=== PATIENT | male | born 1980 | race Caucasian/White ===

== ENCOUNTER 2019-04-30 19:21 | Inpatient (IN) | payer OTHER ==
[2019-04-30] MEDS ORDERED: DEXAMETHASONE LIQUID 0.5 MG/5 ML PO ONE (19:39)
--- NOTE | 2019-04-30 19:39 | PDOC ---
Rapid Medical Evaluation Time Seen by Provider: 04/30/19 19:36 Medical Evaluation: Allergies Allergy/AdvReac Type Severity Reaction Status Date / Time imipenem [Imipenem] Allergy Severe Rash Verified 05/24/14 08:16 Shellfish Allergy Severe Swelling Verified 05/24/14 08:16 vancomycin Allergy Verified 05/24/14 08:16 04/30/19 19:36 HPI: Body pain and SOB x 5 days PE: Decreased breath sounds at the bases ORDERS: Steroids and Duo Nebs CXR Discharge Disposition - Diagnosis SOB (shortness of breath) - Referrals - Patient Instructions - Post Discharge Activity
[2019-04-30 19:42] VITALS: BMI 29.3
[2019-04-30] MEDS ORDERED: ALBUTEROL SO4 2.5/IPRATROPIUM 0.5 INH SOL 3 ML VIAL.NEB. NEB ONE ×3 (22:04→23:03)
[2019-04-30] MEDS ORDERED: DEXAMETHASONE SOD PHOSPHATE 10 MG/1 ML VIAL ONE ×2 (22:07→23:03)
--- NOTE | 2019-04-30 22:26 | PDOC ---
History of Present Illness - General Chief Complaint: Cold Symptoms Stated Complaint: PAIN Time Seen by Provider: 04/30/19 19:36 History Source: Patient - History of Present Illness Initial Comments: 04/30/19 22:25 39 year old undomiciled male c/o cough, bodyaches, subjective fever. nausea and vomiting yesterday.denies drug or alcohol . patient with multiple complaints. reports that patient usually gets care at [facility] PMHX: HIV not on meds off for thge last 6 months, unknown CD4 count, COPD, asthma, substance abuse 04/30/19 22:30 04/30/19 22:39 04/30/19 23:27 Past History - Past Medical History Allergies/Adverse Reactions: Allergies Allergy/AdvReac Type Severity Reaction Status Date / Time imipenem [Imipenem] Allergy Severe Rash Verified 05/24/14 08:16 Shellfish Allergy Severe Swelling Verified 05/24/14 08:16 vancomycin Allergy Verified 05/24/14 08:16 Home Medications: Ambulatory Orders Morphine (Avinza) [Avinza] 30 mg PO DAILY 05/24/14 Arformoterol Tartrate [Brovana -] 1 neb NEB BID #7 vial 05/27/14 Cyproheptadine [Periactin -] 4 mg PO TID #60 tablet 05/27/14 Darunavir Ethanolate [Prezista -] 800 mg PO DAILY #30 tablet 05/27/14 Duloxetine HCl [Cymbalta -] 30 mg PO DAILY #30 capsule. 05/27/14 Emtricitabine/Tenofovir [Truvada -] 1 tab PO DAILY #30 tablet 05/27/14 FENTANYL 25mcg PATCH [DURAGESIC 25mcg PATCH -] 1 each TD Q72H #7 patch.td72 Fentanyl Patch Waste [Duragesic Patch Waste] 1 each TD PRN PRN #7 each 05/27/14 Guaifenesin [Robitussin -] 10 ml PO TID #20 cup 05/27/14 Ibuprofen [Motrin -] 400 mg PO BIDPC #30 tablet 05/27/14 Morphine *Sr* [MS Contin -] 30 mg PO BID #30 tablet.sa 05/27/14 Pregabalin [Lyrica -] 25 mg PO HS #30 capsule 05/27/14 Ritonavir [Norvir -] 100 mg PO DAILY #30 tab 05/27/14 Anemia: No Asthma: No Cancer: No Cardiac Disorders: No CVA: No COPD: Yes CHF: No Dementia: No Diabetes: No GI Disorders: No Disorders: No HTN: No Hypercholesterolemia: No Kidney Stones: No Liver Disease: No Seizures: No Thyroid Disease: No - Surgical History Abdominal Surgery: No Appendectomy: No Cardiac Surgery: No Cholecystectomy: No Lung Surgery: Yes Neurologic Surgery: No Orthopedic Surgery: No - Reproductive History Testicular Surgery: No - Psycho Social/Smoking Cessation Hx Smoking Status: Yes Smoking History: Current every day smoker Have you smoked in the past 12 months: Yes Number of Cigarettes Smoked Daily: 2 Information on smoking cessation initiated: No 'Breaking Loose' booklet given: 01/12/12 Hx Alcohol Use: No Drug/Substance Use Hx: No Substance Use Type: Alcohol, Cocaine Hx Substance Use Treatment: Yes *Physical Exam - Vital Signs Last Vital Signs Temp Pulse Resp BP Pulse Ox 98.5 F 86 19 101/51 L 100 04/30/19 19:35 04/30/19 19:35 04/30/19 19:35 04/30/19 19:35 04/30/19 19:35 - Physical Exam General Appearance: Yes: Appropriately Dressed, Disheveled, Thin HEENT: positive: Other Respiratory/Chest: positive: Lungs Clear, Normal Breath Sounds. negative: Chest Tender, Respiratory Distress, Accessory Muscle Use Cardiovascular: positive: Regular Rhythm, Regular Rate. negative: Tachycardia Gastrointestinal/Abdominal: positive: Normal Bowel Sounds, Soft. negative: Tender Musculoskeletal: positive: Normal Inspection Extremity: positive: Normal Capillary Refill, Normal Inspection, Normal Range of Motion Integumentary: positive: Normal Color, Dry, Warm Neurologic: positive: Fully Oriented, Normal Mood/Affect Procedures - Consent Consent obtained: Verbal - Additional Procedures Progress: 05/01/19 03:20 left index finger ring tight on finger. patient gave verbal consent to cut the ring. + distal finger tip sensation. neurovascular intact Heart Score/ECG Review - History History: Slightly suspicious - Electrocardiogram EKG: Normal - Age Age: </= 45 - Risk Factors Risk Factors Heart Score: Yes Smoking History Based on the list above the patient has:: 1-2 risk factors - ECG Intrepretation Rhythm: Regular Rhythm Comment:: 04/30/19 23:34 NSR with sinus arrythmia prolonged QT t wave abnormality : 81 bpom ED Treatment Course - LABORATORY CBC & Chemistry Diagram: 05/01/19 00:24 05/01/19 00:24 Medical Decision Making - Medical Decision Making 04/30/19 23:35 A; chest discomfort P: labs ekg cardiac Chest xray 04/30/19 23:37 EKG compared to 05/2014 flipped T waves in V4, V5, V6 05/01/19 01:44 chest xray: Course prominent interstitial markings in both lungs and this could be indicative of interstitial pneumonitis or could represent pulmonary fibrosis. Patient signed out to Dr. samuels/ Dr. salmeron Discharge - Discharge Information Problems reviewed: Yes Clinical Impression/Diagnosis: Cough, Abnormal finding on EKG Chest pain Qualifiers: Chest pain type: unspecified Qualified Code(s): R07.9 - Chest pain, unspecified HIV (human immunodeficiency virus infection) Qualifiers: HIV symptom status: unspecified Qualified Code(s): B20 - Human immunodeficiency virus [HIV] disease - Admission Yes - Follow up/Referral - Patient Discharge Instructions - Post Discharge Activity
--- NOTE | 2019-04-30 22:32 | PDOC ---
*Physical Exam - Vital Signs Last Vital Signs Temp Pulse Resp BP Pulse Ox 98.5 F 86 19 101/51 L 100 04/30/19 19:35 04/30/19 19:35 04/30/19 19:35 04/30/19 19:35 04/30/19 19:35 ED Treatment Course - LABORATORY CBC & Chemistry Diagram: 05/01/19 00:24 05/01/19 00:24 Medical Decision Making - Medical Decision Making 04/30/19 22:31 Patient seen by the advanced practice provider under my direct supervision. Ancillary testing reviewed as necessary. I agree with plan as outlined by the advanced practice provider. Discharge - Discharge Information Problems reviewed: Yes Clinical Impression/Diagnosis: Cough, Abnormal finding on EKG Chest pain Qualifiers: Chest pain type: unspecified Qualified Code(s): R07.9 - Chest pain, unspecified HIV (human immunodeficiency virus infection) Qualifiers: HIV symptom status: unspecified Qualified Code(s): B20 - Human immunodeficiency virus [HIV] disease - Follow up/Referral - Patient Discharge Instructions - Post Discharge Activity
[2019-04-30] MEDS: ALBUTEROL SO4 2.5/IPRATROPIUM 0.5 INH SOL 3 ML VIAL.NEB. NEB SCH (23:03)
[2019-05-01 00:22] LABS: PH,URINE 6.5 (5.0-8.0); URINE APPEARANCE CLEAR; URINE BILIRUBIN NEGATIVE (NEGATIVE); URINE COLOR YELLOW; URINE GLUCOSE (UA) NEGATIVE (NEGATIVE); URINE KETONE NEGATIVE (NEGATIVE); URINE LEUK ESTERASE NEGATIVE (NEGATIVE); URINE NITRITE NEGATIVE (NEGATIVE); URINE PROTEIN NEGATIVE (NEGATIVE)
[2019-05-01 00:34] LABS: COCAINE, UR NEGATIVE ng/ml (CUTOFF=300); METHADONE, UR NEGATIVE ng/ml (CUTOFF=300); OPIATES, URI NEGATIVE ng/ml (CUTOFF=300); PHENCYCLIDINE,URINE NEGATIVE ng/ml (CUTOFF=25); URINE BARBITURATES NEGATIVE ng/ml (CUTOFF=200); URINE BENZODIAZEPINES NEGATIVE ng/ml (CUTOFF=200)
[2019-05-01 00:42] LABS: URINE AMPHETAMINES POSITIVE ng/ml (CUTOFF=500)
[2019-05-01 00:54] LABS: EOS % 3.7 % (0-4.5); HEMATOCRIT 36.8 % (35.4-49); HEMOGLOBIN 11.7 GM/dL (11.7-16.9); LYMPH % 15.7 % (8-40); MCHC 31.7 g/dl (32.0-35.9); MEAN PLT VOLUME 6.8 fl (7.5-11.1); MONO % 4.7 % (3.8-10.2); NEUT % 74.9 % (42.8-82.8); PLATELET COUNT 333 K/MM3 (134-434); RDW 17.4 % (11.9-15.9); WHITE BLOOD COUNT 5.3 K/mm3 (4.0-10.0)
[2019-05-01 01:14] LABS: INR 0.85 (0.83-1.09)
[2019-05-01 01:16] LABS: BILIRUBIN,TOTAL 0.2 mg/dL (0.2-1); BLOOD UREA NITROGEN 27.1 mg/dL (7-18); CALCIUM 8.2 mg/dL (8.5-10.1); POTASSIUM 4.3 mmol/L (3.5-5.1); TOT PROT 6.5 g/dl (6.4-8.2)
[2019-05-01 01:17] LABS: N-TERMINAL BNP 66.6 pg/ml (5-125)
--- NOTE | 2019-05-01 02:45 | PN ---
Teaching Attending Note Name of Resident: Marsha Sorto ATTENDING PHYSICIAN STATEMENT I saw and evaluated the patient. I reviewed the resident's note and discussed the case with the resident. I agree with the resident's findings and plan as documented. SUBJECTIVE: Patient is a 39 year old undomiciled transgender transitioning from male to female - identifies as female, with a PMH of HIV disease (nonadherent with HAART ), NIDDM (not taking medications), Polysubstance abuse (cocaine, alcohol), COPD and Tobacco use presenting with cough, bodyaches, subjective fever, nausea and vomiting since yesterday. Also has chest pain that is pleuritic. Patient has had night fever, productive cough with streaks of blood, diarrhea and weight loss. Has not been taking HIV medicines for the past 6 months. Unknown CD4 count and viral load. Patient has worked as an escort. Denies getting any hormonal therapy. OBJECTIVE: Alert Vital Signs Period Temp Pulse Resp BP Sys/Newton Pulse Ox Last 24 Hr 98.1 F-98.5 F 72-86 18-21 91-101/51-64 95-100 HEENT: No Jaundice, eye redness or discharge, PERRLA, EOMI. Normocephalic, atraumatic. External ears are normal and hearing is grossly intact. No nasal discharge. Neck: Supple, nontender. No palpable adenopathy or thyromegaly. No JVD Chest: Good effort. Basilar crackles and clear to percussion. Heart: Regular. No S3, rub or murmur Abdomen: Not distended, soft, nontender and no HSM. No rebound or guarding. Normal bowel sounds. Ext: Peripheral pulses intact. No leg edema. Skin: Warm and dry. No petechiae, rash or ecchymosis. Neuro: Alert. Oriented x3. CN 2-12 grossly intact. Sensation grossly intact in all four extremities and DTR are symmetric. Psych: Appropriate mood and affect. Good insight. Home Medications Medication Instructions Recorded Morphine (Avinza) [Avinza] 30 mg PO DAILY 05/24/14 Arformoterol Tartrate [Brovana -] 1 neb NEB BID #7 vial 05/27/14 Cyproheptadine [Periactin -] 4 mg PO TID #60 tablet 05/27/14 Darunavir Ethanolate [Prezista -] 800 mg PO DAILY #30 tablet 05/27/14 Duloxetine HCl [Cymbalta -] 30 mg PO DAILY #30 capsule. 05/27/14 Emtricitabine/Tenofovir [Truvada -] 1 tab PO DAILY #30 tablet 05/27/14 FENTANYL 25mcg PATCH [DURAGESIC 1 each TD Q72H #7 patch.td72 05/27/14 25mcg PATCH -] Fentanyl Patch Waste [Duragesic 1 each TD PRN PRN #7 each 05/27/14 Patch Waste] Guaifenesin [Robitussin -] 10 ml PO TID #20 cup 05/27/14 Ibuprofen [Motrin -] 400 mg PO BIDPC #30 tablet 05/27/14 Morphine *Sr* [MS Contin -] 30 mg PO BID #30 tablet.sa 05/27/14 Pregabalin [Lyrica -] 25 mg PO HS #30 capsule 05/27/14 Ritonavir [Norvir -] 100 mg PO DAILY #30 tab 05/27/14 Abnormal Lab Results 04/30/19 05/01/19 05/01/19 00:01 00:24 00:24 MCHC 31.7 L RDW 17.4 H MPV 6.8 L Chloride Anion Gap BUN Random Glucose Calcium CK-MB (CK-2) 7.4 H Albumin Ur Amphetamines Screen Positive A* 05/01/19 00:24 MCHC RDW MPV Chloride 109 H Anion Gap 4 L BUN 27.1 H Random Glucose 111 H Calcium 8.2 L CK-MB (CK-2) Albumin 3.0 L Ur Amphetamines Screen ASSESSMENT AND PLAN: 1. Chest pain/HIV disease - Chest pain is atypical and pleuritc but EKG shows shows NSR with T wave inversion in V1-6 and prolonged QTc - no old EKG available for comparison. Initial troponin is negative. Will admit to telemetry to rule out ACS, get ECHO and lipid profile. CXR shows increased interstitial markings, hyperinflation ans cystic changes in the upper lobes. Will rule out Pneumocystis jirovecii infection as well tuberculosis. Get stat LDH, ABG, Beta glucan level, sputum for AFB and Quantiferon test. Place on airborne isolation. Will also send stool for cryptosporidium and C.diff toxin. Will get CD4 count, Viral load, HbA1c and implement insulin sliding scale. Consult ID and initiate appropriate HAART. Will continue comprehensive care for all of patients comorbid conditions. 2. Hypoalbuminemia - Possibly due to combined effects of malnutrition and inflammation associated with comorbid chronic conditions. Will ensure adequate dietary protein intake and also consult occupational therapy instructor. 3. Tobacco Use Counseled on risks associated with tobacco use. We will provide patient all the necessary assistance to facilitate smoking cessation and prescribe Nicotine patch. 4. JOSH - Likely dehydrated. Will hydrate him and monitor urine output. Will avoid nephrotoxic agents such as NSAIDS, aminoglycosides, contrast dyes and certain Alternative medicine products. 6. Alcohol/Drug abuse - Will monitor closely for drug withdrawal. Implement [facility] librium alcohol withdrawal protocol and do neurochecks. Implement seizure, fall and aspiration precautions. Treat with thiamine and folic acid and monitor electrolytes (Ca,Mg,K,P). Counseled patient about abstaining from alcohol. Will consult family services specialist and refer to alcohol/drug detox upon discharge. 7. DVT prophylaxis - Lovenox 40 mg SQ q 24 hours. 8. Advance directives - Full code
[2019-05-01] MEDS ORDERED: KETOROLAC TROMETHAMINE 10 MG TABLET PO ONE (03:02)
--- NOTE | 2019-05-01 04:44 | HP ---
CHIEF COMPLAINT: chest pain and generalized weakness PCP: unknown HISTORY OF PRESENT ILLNESS: 39 y/o Male to Female transgender (identifies as Ms, her and she) with PMH of asthma, diabetes and HIV ( diagnosed in 2007 not on meds) who presented to the emergency room because of generalized weakness, fatigue, and constant chest pain for the past 2 weeks. The chest pain in sharp,crushing and stabbing and worse on inspiration. The pain is also associated with subjective fevers, chills , nausea, blood streaked vomiting & coughing, few episodes watery diarrhea in the past couple of days and night sweats. He also complains of throat pain that he attributes to constant coughing but denies any difficulty swallowing or rash/ white patches in the mouth. Upon further questioning, pt admits that he has not seen any doctors for years and that he has not been on any HAART as he has been unable to follow up due to lapses in his insurance. He denies any dyspnea or chest pain on exertion, headaches,dizziness, palpitations, neck stiffness, visual changes or focal neurological deficits ER course was notable for: (1) CBC and CMP remarkable for albumin of 3 (2) CXR interstitial process pending official read. trop neg x1 EKG with T wave abnormality which wasnt present from previous EKG in 2014 (3) UA neg, Utox positive for methamphetamines Recent Travel: none PAST MEDICAL HISTORY: as above SEXUAL HISTORY: pt works as an escort. denies recent sexual activity and endorse use of barrier contraception at all times. Single. NO recent STD testing. PAST SURGICAL HISTORY: none FAMILY HISTORY: none; everyone alive and well. in touch with sister who lives in [place] Social History: Smoking: smokes cigarettes inconsistently since 1989. "smokes whenever she can get it" Alcohol: social Drugs: denies but positive utox with methamphetamines with no current meds that could give false positive as pt hasnt been taking any Allergies imipenem [Imipenem] Allergy (Severe, Verified 05/24/14 08:16) Rash Shellfish Allergy (Severe, Verified 05/24/14 08:16) Swelling vancomycin Allergy (Verified 05/24/14 08:16) HOME MEDICATIONS: Home Medications Medication Instructions Recorded Morphine (Avinza) [Avinza] 30 mg PO DAILY 05/24/14 Arformoterol Tartrate [Brovana -] 1 neb NEB BID #7 vial 11/24/14 Cyproheptadine [Periactin -] 4 mg PO TID #60 tablet 05/27/14 Darunavir Ethanolate [Prezista -] 800 mg PO DAILY #30 tablet 05/27/14 Duloxetine HCl [Cymbalta -] 30 mg PO DAILY #30 capsule. 05/27/14 Emtricitabine/Tenofovir [Truvada -] 1 tab PO DAILY #30 tablet 05/27/14 FENTANYL 25mcg PATCH [DURAGESIC 1 each TD Q72H #7 patch.td72 05/27/14 25mcg PATCH -] Fentanyl Patch Waste [Duragesic 1 each TD PRN PRN #7 each 05/27/14 Patch Waste] Guaifenesin [Robitussin -] 10 ml PO TID #20 cup 05/27/14 Ibuprofen [Motrin -] 400 mg PO BIDPC #30 tablet 05/27/14 Morphine *Sr* [MS Contin -] 30 mg PO BID #30 tablet.sa 05/27/14 Pregabalin [Lyrica -] 25 mg PO HS #30 capsule 05/27/14 Ritonavir [Norvir -] 100 mg PO DAILY #30 tab 05/27/14 REVIEW OF SYSTEMS CONSTITUTIONAL: fever, chills,generalized weakness Absent: diaphoresis,malaise, loss of appetite, weight change HEENT: throat pain Absent: rhinorrhea, nasal congestion, throat swelling, difficulty swallowing, mouth swelling, ear pain, eye pain, visual changes CARDIOVASCULAR: chest pain Absent: syncope, palpitations, irregular heart rate, lightheadedness, peripheral edema RESPIRATORY: cough, shortness of breath, hemoptysis Absent: dyspnea with exertion, orthopnea, wheezing, stridor, GASTROINTESTINAL: nausea, vomiting, diarrhea Absent: abdominal pain, abdominal distension, constipation, melena, hematochezia GENITOURINARY: Absent: dysuria, frequency, urgency, hesitancy, hematuria, flank pain, genital pain MUSCULOSKELETAL: Absent: myalgia, arthralgia, joint swelling, back pain, neck pain SKIN: Absent: rash, itching, pallor HEMATOLOGIC/IMMUNOLOGIC: Absent: easy bleeding, easy bruising, lymphadenopathy, frequent infections ENDOCRINE: weight loss Absent: unexplained weight gain, , heat intolerance, cold intolerance NEUROLOGIC: Absent: headache, focal weakness or paresthesias, dizziness, unsteady gait, seizure, mental status changes, bladder or bowel incontinence PSYCHIATRIC: Absent: anxiety, depression, suicidal or homicidal ideation, hallucinations. PHYSICAL EXAMINATION Vital Signs - 24 hr 04/30/19 05/01/19 05/01/19 19:35 00:30 03:15 Temperature 98.5 F 98.2 F 98.1 F Pulse Rate 86 Pulse Rate [ 72 75 Left Radial] Respiratory 19 21 H 18 Rate Blood Pressure 101/51 L Blood Pressure 100/64 91/54 L [Right Arm] O2 Sat by Pulse 100 95 96 Oximetry (%) GENERAL: Awake, alert, and fully oriented, in no acute distress. CACHETIC HEAD: Normal with no signs of trauma. EYES: Pupils equal, round and reactive to light, extraocular movements intact, sclera anicteric, conjunctiva clear. No lid lag. EARS, NOSE, THROAT: oropharynx clear without exudates or thrush or erythema or plaques. Moist mucous membranes. NECK: Normal range of motion, supple without lymphadenopathy, JVD, or masses. LUNGS: Breath sounds equal, clear to auscultation bilaterally. No wheezes, but fine crackles in lower lung brown. No accessory muscle use. HEART: Regular rate and rhythm, normal S1 and S2 without murmur, rub or gallop. ABDOMEN: Soft, nontender, not distended, normoactive bowel sounds, no guarding, no rebound, no masses. No hepatomegaly or splenomegaly. MUSCULOSKELETAL: Normal range of motion at all joints. No bony deformities or tenderness. No CVA tenderness. UPPER EXTREMITIES: 2+ pulses, warm, well-perfused. No cyanosis. No clubbing. erythematous digits possibly due to tight fitting of rings. one ring was cut in ED due to pain LOWER EXTREMITIES: 2+ pulses, warm, well-perfused. No calf tenderness. No peripheral edema. NEUROLOGICAL: Cranial nerves II-XII intact. Normal speech. gross motor and sensation intact. PSYCHIATRIC: Cooperative. Good eye contact. Appropriate mood and affect. SKIN: Warm, dry, normal turgor, no rashes or lesions noted, normal capillary refill. Laboratory Results - last 24 hr 04/30/19 04/30/19 05/01/19 00:01 00:01 00:24 WBC RBC Hgb Hct MCV MCH MCHC RDW Plt Count MPV Absolute Neuts (auto) Neutrophils % Lymphocytes % Monocytes % Eosinophils % Basophils % Nucleated RBC % PT with INR INR PTT (Actin FS) 31.6 Sodium Potassium Chloride Carbon Dioxide Anion Gap BUN Creatinine Est GFR (CKD-EPI)AfAm Est GFR (CKD-EPI)NonAf Random Glucose Calcium Total Bilirubin AST ALT Alkaline Phosphatase Creatine Kinase Creatine Kinase Index CK-MB (CK-2) Troponin I B-Natriuretic Peptide Total Protein Albumin Urine Color Yellow Urine Appearance Clear Urine pH 6.5 D Ur Specific [place] 1.029 Urine Protein Negative Urine Glucose (UA) Negative Urine Ketones Negative Urine Blood Negative Urine Nitrite Negative Urine Bilirubin Negative Urine Urobilinogen 1.0 Ur Leukocyte Esterase Negative Opiates Screen Negative Methadone Screen Negative Barbiturate Screen Negative Phencyclidine Screen Negative Ur Amphetamines Screen Positive A* MDMA (Ecstasy) Screen Negative Benzodiazepines Screen Negative Cocaine Screen Negative U Marijuana (THC) Screen Negative 05/01/19 05/01/19 05/01/19 00:24 00:24 00:24 WBC 5.3 RBC 4.50 Hgb 11.7 Hct 36.8 MCV 82.0 MCH 26.0 D MCHC 31.7 L RDW 17.4 H Plt Count 333 MPV 6.8 L Absolute Neuts (auto) 4.0 Neutrophils % 74.9 Lymphocytes % 15.7 D Monocytes % 4.7 Eosinophils % 3.7 Basophils % 1.0 Nucleated RBC % 0 PT with INR INR PTT (Actin FS) Sodium 140 Potassium 4.3 Chloride 109 H Carbon Dioxide 27 Anion Gap 4 L BUN 27.1 H Creatinine 1.0 Est GFR (CKD-EPI)AfAm 110.94 Est GFR (CKD-EPI)NonAf 95.72 Random Glucose 111 H Calcium 8.2 L Total Bilirubin 0.2 AST 25 ALT 21 Alkaline Phosphatase 66 Creatine Kinase 186 Creatine Kinase Index 3.9 CK-MB (CK-2) 7.4 H Troponin I < 0.02 B-Natriuretic Peptide 66.6 Total Protein 6.5 Albumin 3.0 L Urine Color Urine Appearance Urine pH Ur Specific [place] Urine Protein Urine Glucose (UA) Urine Ketones Urine Blood Urine Nitrite Urine Bilirubin Urine Urobilinogen Ur Leukocyte Esterase Opiates Screen Methadone Screen Barbiturate Screen Phencyclidine Screen Ur Amphetamines Screen MDMA (Ecstasy) Screen Benzodiazepines Screen Cocaine Screen U Marijuana (THC) Screen 05/01/19 00:24 WBC RBC Hgb Hct MCV MCH MCHC RDW Plt Count MPV Absolute Neuts (auto) Neutrophils % Lymphocytes % Monocytes % Eosinophils % Basophils % Nucleated RBC % PT with INR 10.00 INR 0.85 PTT (Actin FS) Sodium Potassium Chloride Carbon Dioxide Anion Gap BUN Creatinine Est GFR (CKD-EPI)AfAm Est GFR (CKD-EPI)NonAf Random Glucose Calcium Total Bilirubin AST ALT Alkaline Phosphatase Creatine Kinase Creatine Kinase Index CK-MB (CK-2) Troponin I B-Natriuretic Peptide Total Protein Albumin Urine Color Urine Appearance Urine pH Ur Specific [place] Urine Protein Urine Glucose (UA) Urine Ketones Urine Blood Urine Nitrite Urine Bilirubin Urine Urobilinogen Ur Leukocyte Esterase Opiates Screen Methadone Screen Barbiturate Screen Phencyclidine Screen Ur Amphetamines Screen MDMA (Ecstasy) Screen Benzodiazepines Screen Cocaine Screen U Marijuana (THC) Screen ASSESSMENT/PLAN: 39 y/o Male to Female transgender (identifies as Ms, her and she) with PMH of asthma, diabetes and HIV ( diagnosed in 2007 not on meds) who presented to the emergency room because of generalized weakness, fatigue, and constant chest pain for the past 2 weeks. Admitted to r/o ACS and uncontrolled HIV Uncontrolled HIV with poss opportunistic infections symptoms of generalized weakness, fatigue, pleuritic chest pain, fevers, night sweats, weight loss, and watery diarrhea CXR with interstitial changes concerning for PCP, TB in the setting of untreated HIV LDH , ABG after 3-5 min of walking, Beta glucan level, quantiferon assay, sputum for AFB. Place on airborne isolation until results. if either positive, treat either or both if results positive. stool O&P, WBC and culture for cryptosporidium and C.diff toxin ID Dr Vargas consulted for further evaluation and treatment recommendations CD4 count, viral load to establish baseline consider sending STD panel since pt is high risk due to occupation chest pain r/o ACS trop neg x1 . pending repeat at 6 am initial EKG NSR with sinus arrythmia prolonged QT t wave abnormality. repeat EKG pending for 6 am aspirin 81 mg daily started lipid panel ordered for baseline and risk assessment in the setting of untreated diabetes echo for cardiac Fx eval HX of Diabetes current blood glucose at 111. Pt admits to diabetes diagnosis in [address] on insulin therapy at the time. has not been on any medications in years , nor has he been checking his blood glucose HbA1C ordered to establish diagnosis and baseline FEN no standing fluids albumin 3.0 encourage oral intake. monitor lytes DVT lovenox 40 daily Visit type - Emergency Visit Emergency Visit: Yes ED Registration Date: 05/01/19 Care time: The patient presented to the Emergency Department on the above date and was hospitalized for further evaluation of their emergent condition. - New Patient This patient is new to me today: Yes Date on this admission: 05/01/19 - Critical Care Critical Care patient: No ATTENDING PHYSICIAN STATEMENT I saw and evaluated the patient. I reviewed the resident's note and discussed the case with the resident. I agree with the resident's findings and plan as documented. SUBJECTIVE: OBJECTIVE: ASSESSMENT AND PLAN:
[2019-05-01] MEDS ORDERED: ACETAMINOPHEN 325 MG TABLET (FP) PO PRN (05:10)
[2019-05-01 06:46] VITALS: TEMP 98.2
[2019-05-01] MEDS ORDERED: ACETAMINOPHEN 325 MG TABLET (FP) ONE (07:12)
[2019-05-01] MEDS ORDERED: ENOXAPARIN NA (PORCINE) 40 MG/0.4 ML DISP.SYRIN SQ SCH (10:00)
[2019-05-01] MEDS ORDERED: ASPIRIN COATED 81 MG TABLET.EC PO SCH (10:00)
--- NOTE | 2019-05-01 11:05 | EKG ---
Test Reason : Blood Pressure : / mmHG Vent. Rate : 081 BPM Atrial Rate : 081 BPM P-R Int : 126 ms QRS Dur : 088 ms QT Int : 418 ms P-R-T Axes : 077 085 085 degrees QTc Int : 485 ms NORMAL SINUS RHYTHM WITH SINUS ARRHYTHMIA POSSIBLE LEFT ATRIAL ENLARGEMENT T WAVE ABNORMALITY, CONSIDER ANTEROLATERAL ISCHEMIA PROLONGED QT ABNORMAL ECG Confirmed by Dimitri Heard MD ([id number]) on 05/01/2019 11:04:35 AM Referred By: Confirmed By:Dimitri Heard MD
[2019-05-01 11:21] LABS: BASO % 0.5 % (0-2.0); EOS % 0.1 % (0-4.5); HEMATOCRIT 36.1 % (35.4-49); HEMOGLOBIN 11.4 GM/dL (11.7-16.9); LYMPH % 20.6 % (8-40); MCHC 31.5 g/dl (32.0-35.9); MEAN CELL VOLUME 82.5 fl (80-96); MEAN PLT VOLUME 6.8 fl (7.5-11.1); MONO % 2.5 % (3.8-10.2); NEUT % 76.3 % (42.8-82.8); PLATELET COUNT 380 K/MM3 (134-434); RBC 4.38 M/mm3 (4.00-5.60); RDW 17.3 % (11.9-15.9)
[2019-05-01] MEDS: INSULIN SLIDING SCALE (NOVOLOG) 1 VIAL SQ SCH ×2 (11:49→13:03)
[2019-05-01 12:11] LABS: ALBUMIN 3.2 g/dl (3.4-5.0); ALK PHOS 67 U/L (45-117); ANION GAP 6 MMOL/L (8-16); BILIRUBIN,TOTAL 0.2 mg/dL (0.2-1); BLOOD UREA NITROGEN 33.3 mg/dL (7-18); CALCIUM 8.5 mg/dL (8.5-10.1); CHLORIDE 110 mmol/L (98-107); CHOLESTEROL 200 mg/dL (50-200); CO2 24 mmol/L (21-32); CREATININE 1.2 mg/dL (0.55-1.3); GLUCOSE,RANDOM 129 mg/dL (74-106); HDL CHOLESTEROL 91 mg/dL (40-60); LDH 207 U/L (87-246); LDL CHOLESTEROL (ONLY SJRH) 86 mg/dL (5-100); MAGNESIUM 2.1 mg/dL (1.8-2.4); PHOSPHOROUS 2.8 mg/dL (2.5-4.9); POTASSIUM 4.5 mmol/L (3.5-5.1); SGOT/AST 22 U/L (15-37); SGPT/ALT 20 U/L (13-61); SODIUM 140 mmol/L (136-145); TOT PROT 6.8 g/dl (6.4-8.2); TRIGLYCERIDES 185 mg/dL (0-150)
[2019-05-01] MEDS ORDERED: FLU VACCINE QUAD 60 MCG/0.5 ML (MDV 19-20) IM ONE (13:01)
[2019-05-01 13:04] VITALS: BP 105/63; PULSE 69
--- NOTE | 2019-05-01 15:15 | EKG ---
Test Reason : Blood Pressure : / mmHG Vent. Rate : 055 BPM Atrial Rate : 055 BPM P-R Int : 124 ms QRS Dur : 082 ms QT Int : 404 ms P-R-T Axes : 070 082 079 degrees QTc Int : 386 ms SINUS BRADYCARDIA NONSPECIFIC T WAVE ABNORMALITY ABNORMAL ECG WHEN COMPARED WITH ECG OF 30-APR-2019 22:53, T WAVE INVERSION LESS EVIDENT IN ANTERIOR LEADS QT HAS SHORTENED Confirmed by MD Irwin, Arvind ([id number]) on 05/01/2019 3:15:21 PM Referred By: Confirmed By:Arvind Gayle MD
--- NOTE | 2019-05-01 23:54 | DS ---
Physical Exam: SUBJECTIVE: Patient seen and examined; unfortunately eloped from the ER withour further care and IV inserted. Security informed and police contacted. He has a high risk history including drug abuse and HIV. He was not present to counselor dormitory regarding his decision to leave [facility] as he absconded. OBJECTIVE: Vital Signs Period Temp Pulse Resp BP Sys/[place] Pulse Ox Last 24 Hr 98.1 F-98.2 F 69-75 18-21 91-114/54-64 95-97 PHYSICAL EXAM GENERAL: The patient is awake, alert, and fully oriented, in no acute distress. HEAD: Normal with no signs of trauma. EYES: PERRL, extraocular movements intact, sclera anicteric, conjunctiva clear. ENT: Ears normal, nares patent, oropharynx clear without exudates, moist mucous membranes. NECK: Trachea midline, full range of motion, supple. LUNGS: Breath sounds equal, clear to auscultation bilaterally, no wheezes, no crackles, no accessory muscle use. HEART: Regular rate and rhythm, S1, S2 without murmur, rub or gallop. ABDOMEN: Soft, nontender, nondistended, normoactive bowel sounds, no guarding, no rebound, no hepatosplenomegaly, no masses. EXTREMITIES: 2+ pulses, warm, well-perfused, no edema. NEUROLOGICAL: Cranial nerves II through XII grossly intact. Normal speech, gait not observed. PSYCH: Normal mood, normal affect. SKIN: Warm, dry, normal turgor, no rashes or lesions noted. LABS Laboratory Results - last 24 hr 04/30/19 04/30/19 05/01/19 00:01 00:01 00:24 WBC RBC Hgb Hct MCV MCH MCHC RDW Plt Count MPV Absolute Neuts (auto) Neutrophils % Lymphocytes % Monocytes % Eosinophils % Basophils % Nucleated RBC % PT with INR INR PTT (Actin FS) 31.6 Sodium Potassium Chloride Carbon Dioxide Anion Gap BUN Creatinine Est GFR (CKD-EPI)AfAm Est GFR (CKD-EPI)NonAf POC Glucometer Random Glucose Hemoglobin A1c % Calcium Phosphorus Magnesium Total Bilirubin AST ALT Alkaline Phosphatase LD Total Creatine Kinase Creatine Kinase Index CK-MB (CK-2) Troponin I B-Natriuretic Peptide Total Protein Albumin Triglycerides Cholesterol Total LDL Cholesterol HDL Cholesterol TSH Urine Color Yellow Urine Appearance Clear Urine pH 6.5 D Ur Specific [place] 1.029 Urine Protein Negative Urine Glucose (UA) Negative Urine Ketones Negative Urine Blood Negative Urine Nitrite Negative Urine Bilirubin Negative Urine Urobilinogen 1.0 Ur Leukocyte Esterase Negative Opiates Screen Negative Methadone Screen Negative Barbiturate Screen Negative Phencyclidine Screen Negative Ur Amphetamines Screen Positive A* MDMA (Ecstasy) Screen Negative Benzodiazepines Screen Negative Cocaine Screen Negative U Marijuana (THC) Screen Negative 05/01/19 05/01/19 05/01/19 00:24 00:24 00:24 WBC 5.3 RBC 4.50 Hgb 11.7 Hct 36.8 MCV 82.0 MCH 26.0 D MCHC 31.7 L RDW 17.4 H Plt Count 333 MPV 6.8 L Absolute Neuts (auto) 4.0 Neutrophils % 74.9 Lymphocytes % 15.7 D Monocytes % 4.7 Eosinophils % 3.7 Basophils % 1.0 Nucleated RBC % 0 PT with INR INR PTT (Actin FS) Sodium 140 Potassium 4.3 Chloride 109 H Carbon Dioxide 27 Anion Gap 4 L BUN 27.1 H Creatinine 1.0 Est GFR (CKD-EPI)AfAm 110.94 Est GFR (CKD-EPI)NonAf 95.72 POC Glucometer Random Glucose 111 H Hemoglobin A1c % Calcium 8.2 L Phosphorus Magnesium Total Bilirubin 0.2 AST 25 ALT 21 Alkaline Phosphatase 66 LD Total Creatine Kinase 186 Creatine Kinase Index 3.9 CK-MB (CK-2) 7.4 H Troponin I < 0.02 B-Natriuretic Peptide 66.6 Total Protein 6.5 Albumin 3.0 L Triglycerides Cholesterol Total LDL Cholesterol HDL Cholesterol TSH Urine Color Urine Appearance Urine pH Ur Specific [place] Urine Protein Urine Glucose (UA) Urine Ketones Urine Blood Urine Nitrite Urine Bilirubin Urine Urobilinogen Ur Leukocyte Esterase Opiates Screen Methadone Screen Barbiturate Screen Phencyclidine Screen Ur Amphetamines Screen MDMA (Ecstasy) Screen Benzodiazepines Screen Cocaine Screen U Marijuana (THC) Screen 05/01/19 05/01/19 05/01/19 00:24 07:31 11:08 WBC 3.0 L RBC 4.38 Hgb 11.4 L Hct 36.1 MCV 82.5 MCH 26.0 MCHC 31.5 L RDW 17.3 H Plt Count 380 MPV 6.8 L Absolute Neuts (auto) 2.3 Neutrophils % 76.3 Lymphocytes % 20.6 D Monocytes % 2.5 L Eosinophils % 0.1 D Basophils % 0.5 Nucleated RBC % 0 PT with INR 10.00 INR 0.85 PTT (Actin FS) Sodium Potassium Chloride Carbon Dioxide Anion Gap BUN Creatinine Est GFR (CKD-EPI)AfAm Est GFR (CKD-EPI)NonAf POC Glucometer 151 Random Glucose Hemoglobin A1c % Calcium Phosphorus Magnesium Total Bilirubin AST ALT Alkaline Phosphatase LD Total Creatine Kinase Creatine Kinase Index CK-MB (CK-2) Troponin I B-Natriuretic Peptide Total Protein Albumin Triglycerides Cholesterol Total LDL Cholesterol HDL Cholesterol TSH Urine Color Urine Appearance Urine pH Ur Specific [place] Urine Protein Urine Glucose (UA) Urine Ketones Urine Blood Urine Nitrite Urine Bilirubin Urine Urobilinogen Ur Leukocyte Esterase Opiates Screen Methadone Screen Barbiturate Screen Phencyclidine Screen Ur Amphetamines Screen MDMA (Ecstasy) Screen Benzodiazepines Screen Cocaine Screen U Marijuana (THC) Screen 05/01/19 05/01/19 05/01/19 11:08 11:08 12:11 WBC RBC Hgb Hct MCV MCH MCHC RDW Plt Count MPV Absolute Neuts (auto) Neutrophils % Lymphocytes % Monocytes % Eosinophils % Basophils % Nucleated RBC % PT with INR INR PTT (Actin FS) Sodium 140 Potassium 4.5 Chloride 110 H Carbon Dioxide 24 Anion Gap 6 L BUN 33.3 H Creatinine 1.2 Est GFR (CKD-EPI)AfAm 89.00 Est GFR (CKD-EPI)NonAf 76.79 POC Glucometer 104 Random Glucose 129 H Hemoglobin A1c % 5.6 Calcium 8.5 Phosphorus 2.8 Magnesium 2.1 Total Bilirubin 0.2 AST 22 ALT 20 Alkaline Phosphatase 67 LD Total 207 Creatine Kinase Creatine Kinase Index CK-MB (CK-2) Troponin I < 0.02 B-Natriuretic Peptide Total Protein 6.8 Albumin 3.2 L Triglycerides 185 H Cholesterol 200 Total LDL Cholesterol 86 HDL Cholesterol 91 H TSH 0.26 L Urine Color Urine Appearance Urine pH Ur Specific [place] Urine Protein Urine Glucose (UA) Urine Ketones Urine Blood Urine Nitrite Urine Bilirubin Urine Urobilinogen Ur Leukocyte Esterase Opiates Screen Methadone Screen Barbiturate Screen Phencyclidine Screen Ur Amphetamines Screen MDMA (Ecstasy) Screen Benzodiazepines Screen Cocaine Screen U Marijuana (THC) Screen HOSPITAL COURSE: Date of Admission:05/01/19 Date of Discharge: 05/01/[address] [facility] and a PMH involving polysubastance abuse, HIV with unknown CD4 who is lost to followup off HAART, noncompliance. He presents with atypical chest pain, hemetemesis, cough, tobacco abuse, leukopenia, anemia. He would not accept further workup and absconded with IV in without further counseling. This is unfortunate. Minutes to complete discharge: 33 Discharge Summary Problems reviewed: Yes Reason For Visit: HIV INFECTION, CHEST PAIN - Instructions Disposition: ELOPED This patient is new to me today: Yes Date on this admission: 05/01/19 Emergency Visit: Yes ED Registration Date: 05/01/19 Care time: The patient presented to the Emergency Department on the above date and was hospitalized for further evaluation of their emergent condition. Critical Care patient: No - Discharge Referral Referred to [facility] No
[2019-05-02 08:37] LABS: PREALBUMIN 23.3 mg/dl (20-40)
== END 2019-05-01 13:20 | disposition left against medical advice (07) | DRG 253 ==
LOC: JERFT 19:21 → JERBED 05-01 02:16 → OBSVTOIN 05-01 05:10
PROVIDERS: ADMIT Internal Medicine; ATTEND Internal Medicine
DX: K92.0 Hematemesis (principal); R07.89 Other chest pain; J44.9 Chronic obstructive pulmonary disease, unspecified; Z21 Asymptomatic human immunodeficiency virus [HIV] infection status; F10.10 Alcohol abuse, uncomplicated; D72.819 Decreased white blood cell count, unspecified; E86.0 Dehydration; R50.9 Fever, unspecified; E46 Unspecified protein-calorie malnutrition; N17.9 Acute kidney failure, unspecified; J45.909 Unspecified asthma, uncomplicated; E11.9 Type 2 diabetes mellitus without complications; E88.09 Other disorders of plasma-protein metabolism, not elsewhere classified; D64.9 Anemia, unspecified; F15.10 Other stimulant abuse, uncomplicated; F17.210 Nicotine dependence, cigarettes, uncomplicated; R64 Cachexia; Z68.29 Body mass index [BMI] 29.0-29.9, adult; Z91.19 Patient's noncompliance with other medical treatment and regimen
CPT/HCPCS: 36415; 71046-TC-FY; 80053; 80061; 80307; 81003; 82550; 82553; 82607; 82746; 82962; 83036; 83615; 83721; 83735; 83880; 84100; 84134; 84439; 84443; 84484; 85025; 85610; 85730; 86359; 86360; 86480; 87449; 93005; 93010; 99284-25; G0378

== ENCOUNTER 2019-12-21 05:27 | Inpatient (IN) | payer OTHER ==
--- NOTE | 2019-12-21 05:54 | PDOC ---
Attending Attestation - Resident Resident Name: Abi Pinto - ED Attending Attestation I have performed the following: I have examined & evaluated the patient, The case was reviewed & discussed with the resident, I agree w/resident's findings & plan, Exceptions are as noted - HPI HPI: 12/21/19 07:31 See resident HPI - Physicial Exam PE: 12/21/19 07:31 Agree with documented exam - Medical Decision Making 12/21/19 07:32 uncontrolled HIV, last documented CD4 was 95 with no subsequent HAART, chachectic, c/o f/c productive cough with intermittent hemoptysis, profuse, dark, watery diarrhea Consider AIDS, secondary infections a/w AIDS f/u labs including CD4, quantiferon f/u ct cap IVF hydration re-eval will likely need admission Discharge - Discharge Information Problems reviewed: Yes Clinical Impression/Diagnosis: AIDS Disposition: ELOPED - Follow up/Referral - Patient Discharge Instructions - Post Discharge Activity
[2019-12-21] MEDS ORDERED: SODIUM CHLORIDE 0.9% 500 ML INFUS.BAG IV ONE ×2 (06:05→06:06)
--- NOTE | 2019-12-21 06:14 | PDOC ---
History of Present Illness - General Chief Complaint: Respiratory Stated Complaint: COUGHING Time Seen by Provider: 12/21/19 05:39 Past History - Medical History Allergies/Adverse Reactions: Allergies Allergy/AdvReac Type Severity Reaction Status Date / Time imipenem [Imipenem] Allergy Severe Rash Verified 05/24/14 08:16 Shellfish Allergy Severe Swelling Verified 05/24/14 08:16 vancomycin Allergy Verified 05/24/14 08:16 Anemia: No Asthma: No Cancer: No Cardiac Disorders: No CVA: No COPD: Yes CHF: No Dementia: No Diabetes: No GI Disorders: No Disorders: No HTN: No Hypercholesterolemia: No Kidney Stones: No Liver Disease: No Seizures: No Thyroid Disease: No - Surgical History Abdominal Surgery: No Appendectomy: No Cardiac Surgery: No Cholecystectomy: No Lung Surgery: Yes Neurologic Surgery: No Orthopedic Surgery: No - Reproductive History Testicular Surgery: No - Psycho-Social/Smoking History Smoking Status: Yes Smoking History: Unknown if ever smoked Have you smoked in the past 12 months: No Number of Cigarettes Smoked Daily: 2 'Breaking Loose' booklet given: 01/12/12 *Physical Exam - Vital Signs Last Vital Signs Temp Pulse Resp BP Pulse Ox 97.7 F 82 20 96/62 98 12/21/19 06:01 12/21/19 06:01 12/21/19 06:01 12/21/19 06:01 12/21/19 06:01 ED Treatment Course - LABORATORY CBC & Chemistry Diagram: 12/21/19 06:40 12/21/19 06:46 - RADIOLOGY Radiology Studies Ordered: Category Date Time Status ABDOMEN & PELVIS CT WITH CONTR [CT] Stat CT Scan 12/21/19 06:[address] WITH CONTRAST [CT] Stat CT Scan 12/21/19 06:[address] WITHOUT CONTRAST [CT] Stat CT Scan 12/21/19 06:06 Ordered CHEST X-RAY PORTABLE* [RAD] Stat Radiology 12/21/19 05:58 Ordered Medical Decision Making - Medical Decision Making 12/21/19 06:10 HPI: 39yo undomiciled (per chart, pt denies)transgender transitioning from male to female - identifies as female, with a PMH of HIV disease (nonadherent with HAART because doesn't have PCP, last CD4 95 05/01/19, last viral load unknown), NIDDM (not taking medications), polysubstance abuse (pt denies; per chart: cocaine, alcohol, tobacco), and COPD presents from home for 3 days of cough productive of phlegm and intermittently bright red blood (minimal), profuse watery diarrhea bloody dark, and fever/chills. Endorses dysuria. Endorses chest pain worse when coughs and sore throat. Endorses weight loss, night sweats. Endorses TB contacts, denies hx TB or fdc. 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 Denies sexual activity or risk of new infections. Denies alcohol, smoking, drugs. PCP - none ROS: Constitutional: Positive for night sweats, weight loss, fever, chills, diaphoresis, fatigue. HENT: Positive for sore throat. Negative for rhinorrhea, congestion. Eyes: Negative for visual disturbance. Respiratory: Positive for cough, hemoptysis, wheezing. Negative for shortness of breath. Cardiovascular: Positive for chest pain. Negative for palpitations, and leg swelling. Gastrointestinal: Positive for diarrhea, blood in stool. Negative for abdominal pain, constipation, nausea, and vomiting. Genitourinary: Positive for dysuria. Negative for flank pain, and hematuria. Musculoskeletal: Negative for myalgias, back pain, and neck pain. Skin: Negative for rash. Neurological: Negative for light-headedness, dizziness, vertigo, syncope, weakness, numbness and headaches. Psychiatric/Behavioral: Negative for behavioral problems and confusion. PE: Gen: Alert, NAD, cachectic, diaphoretic, disheveled HEENT: PERRL, EOMI, MMM, NCAT. No conjunctival pallor. Sclera are non-icteric. Oropharynx is clear. CV: Regular rate and rhythm. No murmurs, rubs, or gallops. PULM: No resp distress. Good air movement. Bilateral diffuse mild wheezing. No rales, or rhonchi. ABD: soft, NT/ND, no rebound tenderness or guarding, no CVA tenderness. BACK: No TTP of c/t/l-spine. No step-offs or deformities. MSK: No bony deformities. 2+ pulses in all extremities. NEURO: AAOx3. PERRL. No gross CN deficits. Strength and sensation grossly intact throughout. Normal gait. EXTREMITIES: No cyanosis. No clubbing. No edema. No calf tenderness. PSYCH: Normal mood and thought pattern. SKIN: Warm and diaphoretic. Normal capillary refill. No rashes. No jaundice. MDM: 39yo undomiciled (per chart, pt denies) transgender transitioning from male to female - identifies as female, with a PMH of HIV disease (nonadherent with HAART because doesn't have PCP, last CD4 95 05/01/19, last viral load unknown), NIDDM (not taking medications), polysubstance abuse (pt denies; per chart: cocaine, alcohol, tobacco), and COPD presents from home for 3 days of cough productive of phlegm and intermittently bright red blood (minimal), profuse watery diarrhea bloody dark, dysuria, fever/chills, in addition to weight loss and night sweats. Hypotensive 96/62, otherwise hemodynamically stable, afebrile. Ddx: HIV, TB, malignancy, fungal infection, PNA (bacteria, fungal, viral, COVID), GIB, UTI, metabolic derangement, anemia, asthma exacerbation -Infectious w/u -CD4 -Quantiferon -FOBT -CT chest/abd/pelvis w/IV contrast -IVF -Duonebs -Dispo: likely admit 12/21/19 07:13 Rectal exam performed. No patti blood, fissures, skin flaps, or hemorrhoids s een. No masses or hemorrhoids felt. No pain with digital insertion. Guiac test negative. Pending labs, urine, CTs, FOBT, EKG, likely admit. Pt signed out to Dr Ross. Discharge - Discharge Information Problems reviewed: Yes Clinical Impression/Diagnosis: AIDS - Follow up/Referral - Patient Discharge Instructions - Post Discharge Activity
[2019-12-21] MEDS ORDERED: ALBUTEROL SO4 2.5/IPRATROPIUM 0.5 INH SOL 3 ML VIAL.NEB. NEB ONE (06:54)
[2019-12-21] MEDS ORDERED: ALBUTEROL SO4 HFA INHALER IH ONE (07:40)
[2019-12-21 08:02] LABS: INR 0.86 (0.83-1.09); PROTHROMBIN TIME (PATIENT) 10.1 SEC (9.7-13.0)
[2019-12-21 08:05] LABS: ACTIVATED PTT 32.4 SECONDS (25.2-36.5)
--- NOTE | 2019-12-21 08:05 | PDOC ---
*Physical Exam - Vital Signs Last Vital Signs Temp Pulse Resp BP Pulse Ox 97.7 F 82 20 96/62 98 12/21/19 06:01 12/21/19 06:01 12/21/19 06:01 12/21/19 06:01 12/21/19 06:01 ED Treatment Course - LABORATORY CBC & Chemistry Diagram: 12/21/19 06:40 12/21/19 06:46 - ADDITIONAL ORDERS Additional order review: Laboratory Results 12/21/19 06:46 PT with INR 10.10 INR 0.86 - Medications Given in the ED: ED Medications Discontinued Medications Generic Name Dose Route Start Last Admin Trade Name Freq PRN Reason Stop Dose Admin Sodium Chloride 1,000 ml 12/21/19 06:05 12/21/19 06:45 Normal Saline - IV 12/21/19 06:06 1,000 ml ONCE ONE Administration Sodium Chloride 1,000 ml 12/21/19 06:06 12/21/19 06:45 Normal Saline - IV 12/21/19 06:07 Not Given ONCE ONE Medical Decision Making - Medical Decision Making Patient signed out to me from night team pending admission to hospital for HIV, likely AIDS and initiation of HAART Patient accepted to service of Dr. Valadez for start of HAART, r/o TB, COPD exacerbation and further care Discharge - Discharge Information Problems reviewed: Yes Clinical Impression/Diagnosis: AIDS - Admission Yes - Follow up/Referral - Patient Discharge Instructions - Post Discharge Activity
[2019-12-21 08:09] LABS: BASO % 0.6 % (0-2.0); EOS % 4.4 % (0-4.5); HEMATOCRIT 36.4 % (35.4-49); HEMOGLOBIN 11.4 GM/dL (11.7-16.9); LYMPH % 21.4 % (8-40); MCH 23.7 pg (25.7-33.7); MCHC 31.4 g/dl (32.0-35.9); MEAN CELL VOLUME 75.5 fl (80-96); MEAN PLT VOLUME 7.1 fl (7.5-11.1); MONO % 11.9 % (3.8-10.2); NEUT % 61.7 % (42.8-82.8); PLATELET COUNT 460 K/MM3 (134-434); RBC 4.82 M/mm3 (4.00-5.60)
[2019-12-21 08:16] LABS: ALBUMIN 3.4 g/dl (3.4-5.0); BILIRUBIN,TOTAL 0.1 mg/dL (0.2-1); BLOOD UREA NITROGEN 30.7 mg/dL (7-18); CALCIUM 9.1 mg/dL (8.5-10.1); TOT PROT 8.6 g/dl (6.4-8.2)
--- NOTE | 2019-12-21 10:14 | HP ---
Admitting History and Physical - Primary Care Physician PCP: Ashlee Valadez - Admission Chief Complaint: cough and hemoptysis, bloody diarroea, for a few days. History of Present Illness: 39yo undomiciled (per chart, pt denies)transgender transitioning from male to female - identifies as female, with a PMH of HIV disease (nonadherent with HAART because doesn't have PCP, last CD4 95 05/01/19, last viral load unknown), NIDDM (not taking medications), polysubstance abuse (pt denies; per chart: cocaine, alcohol, tobacco), and COPD presents from home for 3 days of cough productive of phlegm and intermittently bright red blood (minimal), profuse watery diarrhea 2- 3 times a day bloody dark, and fever/chills. Endorses dysuria. Endorses chest pain worse when coughs and sore throat. Endorses weight loss, night sweats. Endorses TB contacts, denies hx TB or fci. 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 Denies sexual activity or risk of new infections. Denies alcohol, smoking, drugs History Source: Patient - Past Medical History Pulmonary: Yes: Other (ill defined pulm lesions requireing open surg intervent of the right upper lobe 2 years ago) Infectious Disease: Yes: AIDS Psych: Yes: Addictions Musculoskeletal: Yes: Other (Rt hip asept necrosis) - Smoking History Smoking history: Unknown if ever smoked Have you smoked in the past 12 months: No Aproximately how many cigarettes per day: 2 - Alcohol/Substance Use Hx Alcohol Use: No History of Substance Use: reports: Cocaine - Social History ADL: Family Assistance History of Recent Travel: No Home Medications - Allergies Allergies/Adverse Reactions: Allergies Allergy/AdvReac Type Severity Reaction Status Date / Time imipenem [Imipenem] Allergy Severe Rash Verified 05/24/14 08:16 Shellfish Allergy Severe Swelling Verified 05/24/14 08:16 vancomycin Allergy Verified 05/24/14 08:16 Family Medical History Family History: Unremarkable Review of Systems - Review of Systems Constitutional: reports: Fever, Lethargy, Malaise, Night Sweats HENT: reports: No Symptoms Cardiovascular: reports: Chest Pain Respiratory: reports: Cough, Hemoptysis, SOB Gastrointestinal: reports: Diarrhea, Melena Genitourinary: reports: Frequency Musculoskeletal: reports: Muscle Pain Physical Examination Vital Signs: Vital Signs Temperature 97.7 F 12/21/19 06:01 Pulse Rate 82 12/21/19 06:01 Respiratory Rate 20 12/21/19 06:01 Blood Pressure 96/62 12/21/19 06:01 O2 Sat by Pulse Oximetry (%) 98 12/21/19 09:06 Constitutional: Yes: Well Nourished, No Distress Eyes: Yes: Conjunctiva Clear, EOM Intact HENT: Yes: Atraumatic, Normocephalic Neck: Yes: Supple, Trachea Midline Cardiovascular: Yes: Regular Rate and Rhythm Respiratory: Yes: Regular, CTA Bilaterally Gastrointestinal: Yes: Normal Bowel Sounds, Soft Extremities: Yes: WNL Edema: No Peripheral Pulses WNL: Yes Neurological: Yes: WNL ...Motor Strength: WNL Psychiatric: Yes: WNL Labs: CBC, BMP 12/21/19 06:46 Imaging - Results Cat Scan: Report Reviewed (2. Extensive chronic lung disease with hyperaeration, peripheral bulla, apical pleural thickening and ill-defined nodularity. There is no definite evidence of acute pathology within the chest. 3. Essentially normal CT scan of the abdomen and pelvis with no evidence of acute pathology. Please see above discussion.) EKG: Report Reviewed, Image Reviewed (nsr no acute st t changes,) Problem List - Problems (1) Weight decreased Code(s): R63.4 - ABNORMAL WEIGHT LOSS (2) Chest pain Code(s): R07.9 - CHEST PAIN, UNSPECIFIED Qualifiers: Chest pain type: unspecified Qualified Code(s): R07.9 - Chest pain, unspecified (3) Cough Code(s): R05 - COUGH (4) HIV (human immunodeficiency virus infection) Code(s): B20 - HUMAN IMMUNODEFICIENCY VIRUS [HIV] DISEASE Qualifiers: HIV symptom status: unspecified Qualified Code(s): B20 - Human immunodeficiency virus [HIV] disease Assessment/Plan 39yo undomiciled (per chart, pt denies)transgender transitioning from male to female - identifies as female, with a PMH of HIV disease (nonadherent with HAART because doesn't have PCP, last CD4 95 05/01/19, last viral load unknown), NIDDM (not taking medications), polysubstance abuse (pt denies; per chart: cocaine, alcohol, tobacco), and COPD presents from home for 3 days of cough productive of phlegm and intermittently bright red blood (minimal), profuse watery diarrhea bloody dark, and fever/chills. #hemoptysis, and cough will start iv bactrim empirical treatment, to cover for oppurtunistic infection, and ID consult, rule out TB will get sputum c&s and quantefron, Pulmonology consult, #Bloody diarroea, stool ob rule out oppurtunistic infections, and will see theGI, #HIV get viral load and cd 8 and cd4 count, #dvt prophylaxis, scd, no AC bloody diarroea, and also hemptysis, Visit type - Emergency Visit Emergency Visit: Yes ED Registration Date: 12/21/19 Care time: The patient presented to the Emergency Department on the above date and was hospitalized for further evaluation of their emergent condition. - New Patient This patient is new to me today: Yes Date on this admission: 12/21/19 - Critical Care Critical Care patient: No
[2019-12-21] MEDS ORDERED: ACETAMINOPHEN 325 MG TABLET (FP) PO PRN (10:19)
[2019-12-21] MEDS ORDERED: ALBUTEROL SO4 HFA INHALER IH PRN (11:05)
--- NOTE | 2019-12-21 13:03 | CON.GI ---
Consult Consult Specialty:: GI Referred by:: Hospitalist Service Reason for Consultation:: Diarrhea - History of Present Illness Chief Complaint: cough, hemoptysis, diarrhea History of Present Illness: 39M admitted through [facility]. vague historian. Describes 4 days of watery diarrhea (can awaken him at night, blood streaked at times), cough, spitting up blood with phlegm. he has HIV for multiple years but is non compliant with treatment. no abdominal pain. No EGD/Colon in past. no family history of colorectal cancer or IBD. + nightsweats, + weight loss. Being ruled out for COVID-19 and pulmonary TB. No recent travel, no change in dietary habits, no recent antiobitics. Denies sexual activity within the last 2 years. Denies ever having anal intercourse. CT scan failed to reveal acute pathology within the abdomen or pelvis. No colitis or overt enteritis noted. - History Source History Provided By: Patient, Medical Record Limitations to Obtaining History: Poor Historian - Past Medical History Pulmonary: Yes: Other (ill defined pulm lesions requireing open surg intervent of the right upper lobe 2 years ago) Infectious Disease: Yes: AIDS Psych: Yes: Addictions Musculoskeletal: Yes: Other (Rt hip asept necrosis) - Alcohol/Substance Use Hx Alcohol Use: No History of Substance Use: reports: Cocaine - Smoking History Smoking history: Unknown if ever smoked Have you smoked in the past 12 months: No Aproximately how many cigarettes per day: 2 - Social History ADL: Family Assistance History of Recent Travel: No Home Medications - Allergies Allergies/Adverse Reactions: Allergies Allergy/AdvReac Type Severity Reaction Status Date / Time imipenem [Imipenem] Allergy Severe Rash Verified 05/24/14 08:16 Shellfish Allergy Severe Swelling Verified 05/24/14 08:16 vancomycin Allergy Verified 05/24/14 08:16 Family Medical History Other Family History: Mother / Father: : unknown causes. No siblings. No children. No famiy history of colorectal caner or IBD Review of Systems - Review of Systems Constitutional: reports: Chills, Loss of Appetite, Unintentional Wgt. Loss Cardiovascular: reports: Shortness of Breath. denies: Chest Pain Respiratory: reports: Cough, Hemoptysis, SOB on Exertion Gastrointestinal: reports: Diarrhea, Rectal Bleeding. denies: Abdominal Pain, Vomiting, Vomiting Blood Physical Exam-GI Vital Signs: Vital Signs Temperature 97.6 F 06/19/20 11:19 Pulse Rate 76 12/21/19 11:19 Respiratory Rate 18 12/21/19 11:19 Blood Pressure 110/80 12/21/19 11:19 O2 Sat by Pulse Oximetry (%) 98 12/21/19 11:19 Constitutional: Yes: Calm Eyes: No: Sclera Icterus Cardiovascular: Yes: Regular Rate and Rhythm Respiratory: Yes: Diminished (at bases bilaterally), Hyperresonant Gastrointestinal Inspection: Yes: Scars (decorative umbilical ring scar). No: Distention ...Auscultate: Yes: Normoactive Bowel Sounds ...Palpate: Yes: Soft. No: Hepatomegaly, Splenomegaly, Tenderness ...Percussion: No: Tympanitic ...Rectal Exam: Yes: Other (No external lesions, no masses, no blood, stool) Edema: No (No LE edema) Neurological: Yes: Alert Labs: CBC, BMP 12/21/19 06:46 INR, PTT INR 0.86 (0.83-1.09) 12/21/19 06:46 Hepatic Panel Total Bilirubin 0.1 mg/dL (0.2-1) L 12/21/19 06:46 AST 46 U/L (15-37) H 12/21/19 06:46 ALT 26 U/L (13-61) 12/21/19 06:46 Alkaline Phosphatase 96 U/L (45-117) 12/21/19 06:46 Albumin 3.4 g/dl (3.4-5.0) 12/21/19 06:46 Problem List - Problems (1) Diarrhea Assessment/Plan: In setting of HIV/AIDs No overt bleeding noted and hemodynamically stable. No focal findings on abdominal exam: Stool for O&P, culture, C. DIff toxin and antigen ordered Exclude atypicals: Stool for cryptosporidium/giardia Ag, isospora/microsporidium, O&P, AFB culture/smear ordered Advance diet as tolerated Being ruled out for pulmonary TB. Pulm to see patient ID evaluation If stool testing negative and still symptomatic, when COVID-19 and pulmonary TB excluded EGD/Colonoscopy could be performed for further evaluation. Code(s): R19.7 - DIARRHEA, UNSPECIFIED
--- NOTE | 2019-12-21 16:02 | PN ---
Progress Note (short form) - Note Progress Note: ID consult dictated 39 yo man with AIDS- no medical f/u, admitted with several days of cough, some blood tinged, and diarrhea for last 5 days denies substance use, denies history of TB or hepatitis [place] no abdominal pain reports chest pain with cough quant gold negative 2019 states he is not sexually active not hypoxic afebrile ct scan of chest abd and pelvis notable for extensive chronic lung disease with pleural based nodularity (has had RUL surgery in the past for nonspecific nodules) reports fevers at home AIDs possible hemoptysis- no signs of bacterial pneumonia on chest ct diarrhea advanced copd- check alpha 1 antitryspin level, ?copd exacerbation stool studies cd4 count nodules in lung- check for afb disease, cryptococcal antigen, blood afb quant gold has been on cephalosporins in the past check ldh and fungitell afb isolation covid pcr Problem List - Problems (1) AIDS Code(s): B20 - HUMAN IMMUNODEFICIENCY VIRUS [HIV] DISEASE (2) Hemoptysis Code(s): R04.2 - HEMOPTYSIS (3) Diarrhea Code(s): R19.7 - DIARRHEA, UNSPECIFIED (4) COPD (chronic obstructive pulmonary disease) Code(s): J44.9 - CHRONIC OBSTRUCTIVE PULMONARY DISEASE, UNSPECIFIED
--- NOTE | 2019-12-21 16:29 | CON.PULM ---
Consult Consult Specialty:: PULM/CCM Referred by:: Hospitalist Reason for Consultation:: Hemoptysis - History of Present Illness Chief Complaint: Hemoptysis History of Present Illness: 39 M, HIV / AIDS. Admits to no medical follow up. Denies previous opportunistic pulmonary infections. Does report "lung surgery" in 1990 at [facility]. He is unsure of the reason or the findings (cannot give exact details). CT imaging here 2011 revealed bilateral mild diffuse changes and early bullae. No travel history or sick contacts. He does admit to 2 episodes of hemoptysis: volume estimated to be about 5 to 10 ccs. Mostly dark blood with "specks" of bright blood. No night sweats. Reports pleuritic type CP with cough. Quantiferon gold (-) 2019 Comfortable on RA, saturation 98%. CT : diffuse bilateral ILD with bullae / no acute infiltrate appreciated - History Source History Provided By: Patient Limitations to Obtaining History: Poor Historian - Past Medical History Pulmonary: Yes: Bronchitis, Other (ill defined pulm lesions requireing open surg intervent of the right upper lobe 2 years ago). No: Asthma, COPD, O2 Dependent, Pneumonia, Previously Intubated, Pulmonary Embolus, Pulmonary Fibrosis, Sleep Apnea Infectious Disease: Yes: AIDS Psych: Yes: Addictions Musculoskeletal: Yes: Other (Rt hip asept necrosis) - Alcohol/Substance Use Hx Alcohol Use: No History of Substance Use: reports: Cocaine - Smoking History Smoking history: Unknown if ever smoked Have you smoked in the past 12 months: No Aproximately how many cigarettes per day: 2 - Social History ADL: Family Assistance History of Recent Travel: No Home Medications - Allergies Allergies/Adverse Reactions: Allergies Allergy/AdvReac Type Severity Reaction Status Date / Time imipenem [Imipenem] Allergy Severe Rash Verified 05/24/14 08:16 Shellfish Allergy Severe Swelling Verified 05/24/14 08:16 vancomycin Allergy Verified 05/24/14 08:16 Review of Systems - Review of Systems Constitutional: reports: Fever, Malaise. denies: Chills, Night Sweats, Unintentional Wgt. Loss Eyes: reports: No Symptoms HENT: reports: No Symptoms Neck: reports: No Symptoms Cardiovascular: reports: Chest Pain, Shortness of Breath. denies: Edema, Palpitations Respiratory: reports: Cough, Hemoptysis, SOB, SOB on Exertion, Wheezing. denies: Snoring Gastrointestinal: reports: No Symptoms Genitourinary: reports: No Symptoms Breasts: reports: No Symptoms Reported Musculoskeletal: reports: Back Pain Integumentary: reports: No Symptoms Neurological: reports: No Symptoms Endocrine: reports: No Symptoms Hematology/Lymphatic: reports: No Symptoms Psychiatric: reports: No Symptoms Physical Exam Vital Sings: Vital Signs Temperature 97.6 F 12/21/19 11:19 Pulse Rate 76 12/21/19 11:19 Respiratory Rate 18 12/21/19 11:19 Blood Pressure 110/80 12/21/19 11:19 O2 Sat by Pulse Oximetry (%) 98 12/21/19 11:19 Constitutional: Yes: No Distress, Thin Eyes: Yes: Conjunctiva Clear, EOM Intact HENT: Yes: Atraumatic, Normocephalic Neck: Yes: Supple, Trachea Midline Cardiovascular: Yes: Regular Rate and Rhythm Respiratory: Yes: Cough, Diminished, Rhonchi. No: Accessory Muscle Use, Rales, SOB, SOB on Exertion, Stridor, Tachypnea, Wheezes ...Inspection: Yes: WNL ...Clubbing: No Gastrointestinal: Yes: Normal Bowel Sounds, Soft Renal/: Yes: WNL Musculoskeletal: Yes: WNL Extremities: Yes: WNL Edema: No Peripheral Pulses WNL: Yes Integumentary: Yes: WNL Neurological: Yes: WNL, Alert, Oriented ...Motor Strength: WNL Psychiatric: Yes: WNL, Alert, Oriented Labs: CBC, BMP 12/21/19 06:46 Imaging - Results Chest X-ray: Report Reviewed, Image Reviewed Cat Scan: Report Reviewed, Image Reviewed Problem List - Problems (1) Hemoptysis Code(s): R04.2 - HEMOPTYSIS (2) ILD (interstitial lung disease) Code(s): J84.9 - INTERSTITIAL PULMONARY DISEASE, UNSPECIFIED (3) Lung bullae Code(s): J43.9 - EMPHYSEMA, UNSPECIFIED (4) AIDS Code(s): B20 - HUMAN IMMUNODEFICIENCY VIRUS [HIV] DISEASE (5) Chest pain Code(s): R07.9 - CHEST PAIN, UNSPECIFIED Qualifiers: Chest pain type: unspecified Qualified Code(s): R07.9 - Chest pain, unspecified (6) Cough Code(s): R05 - COUGH (7) Gastritis Code(s): K29.70 - GASTRITIS, UNSPECIFIED, WITHOUT BLEEDING (8) HIV (human immunodeficiency virus infection) Code(s): B20 - HUMAN IMMUNODEFICIENCY VIRUS [HIV] DISEASE Qualifiers: HIV symptom status: unspecified Qualified Code(s): B20 - Human immunode ficiency virus [HIV] disease (9) Human immunodeficiency virus infection Code(s): Z21 - ASYMPTOMATIC HUMAN IMMUNODEFICIENCY VIRUS INFECTION STATUS Assessment/Plan Sputum for PCP & AFB Supplemental O2 as needed: currently saturating 98% on RA ID evaluation noted Monitor and quantify hemoptysis Can check alpha 1 antitryspin level BD TX PRN Check cryptococcal antigen Check Quant gold Check COVID19 PCR Isolation Will follow Dr Cheng
[2019-12-21 17:02] LABS: PH,URINE 7.5 (5.0-8.0); URINE APPEARANCE CLEAR; URINE BILIRUBIN NEGATIVE (NEGATIVE); URINE COLOR YELLOW; URINE GLUCOSE (UA) NEGATIVE (NEGATIVE); URINE KETONE NEGATIVE (NEGATIVE); URINE LEUK ESTERASE NEGATIVE (NEGATIVE); URINE NITRITE NEGATIVE (NEGATIVE); URINE PROTEIN NEGATIVE (NEGATIVE)
[2019-12-21] MEDS ORDERED: ACETAMINOPHEN 1000 MG/100 ML VIAL (NON FORMULARY) IVPB ONE ×2 (20:18)
[2019-12-21] MEDS ORDERED: SULFAMETHOXAZOLE/TRIMETHOPRIM 800MG/160MG D.S. TABLET PO SCH (22:00)
--- NOTE | 2019-12-22 00:20 | CONS ---
DATE OF CONSULTATION: DATE OF DICTATION: 12/21/2019 INFECTIOUS DISEASE CONSULTATION HISTORY OF PRESENT ILLNESS: This is a 39-year-old man who presents to the ER. He is an extremely poor historian. He apparently comes to the ER complaining of 4-5 days of watery diarrhea. Apparently he has had some blood streaks. As well he has had an intermittent cough, again with some blood streaks. There is no documented fever. He has no where to live. He is from the [place]. He has abdominal pain. He is HIV positive he tells me for 1 year, although he was here in 2011 and was HIV positive at that time, and he tells me he is not under any care and has not been. He denies any sexual activity. He denies any recent antibiotics. He denies any recent hospitalizations. He says he has never had TB, has never had any type of hepatitis, although the computer shows he is hepatitis C positive. He also states he has never had any substance use issues, although there are prior urine toxicology screens in our system, most recently in November of this year that showed amphetamine use and cocaine use. ALLERGIES: He is allergic to IMIPENEM, SHELLFISH, and VANCOMYCIN. Has gotten cephalosporins, quinolones, and macrolides on prior admissions here. PAST MEDICAL HISTORY: Notable for HIV by T-cells from the last time he was here in April 2019, his T-cells were 95. He apparently has a history of pancreatitis, hernia repair, he has had lung surgery for nonspecific nodules and has aseptic necrosis of the right hip. Cultures in the past have all been on prior admission negative. SOCIAL HISTORY: Unclear where he lives. He denies to me any substance use history, alcohol history, or cigarette use. REVIEW OF SYSTEMS: He has no abdominal pain. He notes chest discomfort with cough. He has not had any fevers. He has not had any sweats. He has had marked weight loss. PHYSICAL EXAMINATION: Vital Signs: He has been afebrile since he arrived. Temperature is 97.6, pulse of 76, blood pressure 110/80, respiratory rate 18, he is saturating 98% on room air. HEENT: Normocephalic. He has no thrush. Neck: Supple. He is cachectic. Lungs: Decreased breath sounds throughout. Heart: Regular rate and rhythm. Abdomen: Soft, nontender. Extremities: Without edema. Genitourinary: He has no genital lesions. LABORATORY: White count is 5, hemoglobin 11.4, platelets of 460, INR is normal. His BUN and creatinine are 30 and 1. AST of 46 on prior. Hepatitis serology from 2011 he was hepatitis B surface antibody positive and hepatitis C antibody positive. last T-cells here were 95. He has as well a Quantiferon in the computer from April 2019 that is negative. He had imaging done in the ER. He had a CAT scan of his abdomen and pelvis done in the ER that are notable for extensive chronic lung disease with hyperaeration, peripheral bullae, apical pleural thickening, ill-defined nodularity. No evidence of acute pathology in the lung, and essentially normal abdomen and pelvis. IMPRESSION: In summary, this is a 39-year-old man who presents with increased cough . CAT scan evidence of advanced chronic obstructive pulmonary disease, possible hemoptysis, no signs of acute bacterial pneumonia on chest CT and diarrhea in the setting of acquired immunodeficiency syndrome and noncompliance with medication. Would check a CD4 count, stool studies, blood cultures have been sent. Blood for AFB. Would check an alpha 1 antitrypsin level given the advanced COPD. Would suggest pulmonary evaluation. Would check for AFB disease, cryptococcal antigen, urinary histopathology, and blood AFB. Would obtain a Quantiferon gold. Would check an LDH and fungitell and AFB isolation, COVID PCR. At this point, he appears quite stable. He has no fever. He is saturating 98% on room air, so I would obtain these studies at this time. DOMINGUEZ LLOYD M.D. [id number] MTDD
[2019-12-22] MEDS ORDERED: LORazepam 1 MG TABLET PO ONE (01:03)
[2019-12-22] MEDS ORDERED: LORazepam 2 MG/ML SDV VIAL IVPUSH ONE (01:42)
[2019-12-22 08:09] LABS: HEMATOCRIT 35.3 % (35.4-49); HEMOGLOBIN 11.1 GM/dL (11.7-16.9); MCH 23.8 pg (25.7-33.7); MCHC 31.6 g/dl (32.0-35.9); MEAN CELL VOLUME 75.5 fl (80-96); PLATELET COUNT 438 K/MM3 (134-434); RBC 4.67 M/mm3 (4.00-5.60); RDW 18.2 % (11.9-15.9); WHITE BLOOD COUNT 3.8 K/mm3 (4.0-10.0)
[2019-12-22 08:23] LABS: BLOOD UREA NITROGEN 26.3 mg/dL (7-18); CALCIUM 8.8 mg/dL (8.5-10.1); CREATININE 0.9 mg/dL (0.55-1.3); MAGNESIUM 2.2 mg/dL (1.8-2.4); POTASSIUM 4.4 mmol/L (3.5-5.1)
[2019-12-22] MEDS: LORazepam 2 MG/ML SDV VIAL IVPUSH PRN ×2 (12:07→20:22)
--- NOTE | 2019-12-22 13:58 | PN ---
Progress Note (short form) - Note Progress Note: Eating breakfast. Reports "small" amount of hemoptysis overnight and cannot quantify better. NAD on NC O2. Intake & Output 12/19/19 12/20/19 12/21/19 12/22/19 23:59 23:59 23:59 23:59 Intake Total 1000 500 Balance 1000 500 Weight 108 lb 7 oz Last Vital Signs Temp Pulse Resp BP Pulse Ox 98.5 F 102 H 18 128/48 L 97 12/22/19 10:00 12/22/19 10:00 12/22/19 10:00 12/22/19 10:00 12/22/19 09:00 Active Medications Acetaminophen (Tylenol -) 650 mg PO Q4H PRN PRN Reason: FEVER Albuterol Sulfate (Ventolin Hfa Inhaler -) 2 puff IH Q4H PRN PRN Reason: SHORT OF BREATH/WHEEZING Lorazepam (Ativan Injection -) 1 mg IVPUSH Q8H PRN PRN Reason: ANXIETY Last Admin: 12/22/19 12:07 Dose: 1 mg Documented by: Constitutional: Yes: No Distress, Thin Eyes: Yes: Conjunctiva Clear, EOM Intact HENT: Yes: Atraumatic, Normocephalic Neck: Yes: Supple, Trachea Midline Cardiovascular: Yes: Regular Rate and Rhythm Respiratory: Yes: Cough, Diminished, Rhonchi. No: Accessory Muscle Use, Rales, SOB, SOB on Exertion, Stridor, Tachypnea, Wheezes ...Inspection: Yes: WNL ...Clubbing: No Gastrointestinal: Yes: Normal Bowel Sounds, Soft Renal/: Yes: WNL Musculoskeletal: Yes: WNL Extremities: Yes: WNL Edema: No Peripheral Pulses WNL: Yes Integumentary: Yes: WNL Neurological: Yes: WNL, Alert, Oriented ...Motor Strength: WNL Psychiatric: Yes: WNL, Alert, Oriented Labs: Laboratory Results - last 24 hr 12/21/19 12/21/19 12/22/19 06:46 16:00 06:25 WBC 3.8 L RBC 4.67 Hgb 11.1 L Hct 35.3 L MCV 75.5 L MCH 23.8 L MCHC 31.6 L RDW 18.2 H Plt Count 438 H MPV 7.0 L Sodium Potassium Chloride Carbon Dioxide Anion Gap BUN Creatinine Est GFR (CKD-EPI)AfAm Est GFR (CKD-EPI)NonAf Random Glucose Calcium Magnesium LD Total Resin T3 Uptake Urine Color Yellow Urine Appearance Clear Urine pH 7.5 Ur Specific Somers 1.033 Urine Protein Negative Urine Glucose (UA) Negative Urine Ketones Negative Urine Blood Negative Urine Nitrite Negative Urine Bilirubin Negative Urine Urobilinogen 1.0 Ur Leukocyte Esterase Negative COVID-19 (SUE) Not detected 12/22/19 06:25 WBC RBC Hgb Hct MCV MCH MCHC RDW Plt Count MPV Sodium 137 Potassium 4.4 Chloride 106 Carbon Dioxide 24 Anion Gap 7 L BUN 26.3 H Creatinine 0.9 Est GFR (CKD-EPI)AfAm 126.02 Est GFR (CKD-EPI)NonAf 108.73 Random Glucose 101 Calcium 8.8 Magnesium 2.2 LD Total 248 H Resin T3 Uptake 29.7 L Urine Color Urine Appearance Urine pH Ur Specific Somers Urine Protein Urine Glucose (UA) Urine Ketones Urine Blood Urine Nitrite Urine Bilirubin Urine Urobilinogen Ur Leukocyte Esterase COVID-19 (SUE) Imaging - Results Chest X-ray: Report Reviewed, Image Reviewed Cat Scan: Report Reviewed, Image Reviewed Problem List - Problems (1) Hemoptysis Code(s): R04.2 - HEMOPTYSIS (2) ILD (interstitial lung disease) Code(s): J84.9 - INTERSTITIAL PULMONARY DISEASE, UNSPECIFIED (3) Lung bullae Code(s): J43.9 - EMPHYSEMA, UNSPECIFIED (4) AIDS Code(s): B20 - HUMAN IMMUNODEFICIENCY VIRUS [HIV] DISEASE (5) Chest pain Code(s): R07.9 - CHEST PAIN, UNSPECIFIED Qualifiers: Chest pain type: unspecified Qualified Code(s): R07.9 - Chest pain, unspecified (6) Cough Code(s): R05 - COUGH (7) Gastritis Code(s): K29.70 - GASTRITIS, UNSPECIFIED, WITHOUT BLEEDING (8) HIV (human immunodeficiency virus infection) Code(s): B20 - HUMAN IMMUNODEFICIENCY VIRUS [HIV] DISEASE Qualifiers: HIV symptom status: unspecified Qualified Code(s): B20 - Human immunodeficiency virus [HIV] disease (9) Human immunodeficiency virus infection Code(s): Z21 - ASYMPTOMATIC HUMAN IMMUNODEFICIENCY VIRUS INFECTION STATUS Assessment/Plan Sputum for PCP & AFB Supplemental O2 as needed: currently saturating 98% on RA Monitor and quantify hemoptysis BD TX PRN Check cryptococcal antigen Check Quant gold Check COVID[address] Cheng Problem List - Problems (1) Hemoptysis Code(s): R04.2 - HEMOPTYSIS (2) ILD (interstitial lung disease) Code(s): J84.9 - INTERSTITIAL PULMONARY DISEASE, UNSPECIFIED (3) Lung bullae Code(s): J43.9 - EMPHYSEMA, UNSPECIFIED (4) AIDS Code(s): B20 - HUMAN IMMUNODEFICIENCY VIRUS [HIV] DISEASE (5) Chest pain Code(s): R07.9 - CHEST PAIN, UNSPECIFIED Qualifiers: Chest pain type: unspecified Qualified Code(s): R07.9 - Chest pain, u nspecified (6) Cough Code(s): R05 - COUGH (7) Gastritis Code(s): K29.70 - GASTRITIS, UNSPECIFIED, WITHOUT BLEEDING (8) HIV (human immunodeficiency virus infection) Code(s): B20 - HUMAN IMMUNODEFICIENCY VIRUS [HIV] DISEASE Qualifiers: HIV symptom status: unspecified Qualified Code(s): B20 - Human immunodeficiency virus [HIV] disease (9) Human immunodeficiency virus infection Code(s): Z21 - ASYMPTOMATIC HUMAN IMMUNODEFICIENCY VIRUS INFECTION STATUS
--- NOTE | 2019-12-22 16:53 | PN ---
Progress Note, Physician Chief Complaint: Denies fevers, or dyspnea History of Present Illness: 39 year old undomiciled (per chart, pt denies)transgender transitioning from male to female - identifies as female, with a PMH of HIV disease (nonadherent with HAART because doesn't have PCP, last CD4 95 05/01/19, last viral load unknown), NIDDM (not taking medications), polysubstance abuse (pt denies; per chart: cocaine, alcohol, tobacco), and COPD presents from home for 3 days of cough productive of phlegm and intermittently bright red blood (minimal), profuse watery diarrhea bloody dark, and fever/chills. - Current Medication List Current Medications: Active Medications Acetaminophen (Tylenol -) 650 mg PO Q4H PRN PRN Reason: FEVER Albuterol Sulfate (Ventolin Hfa Inhaler -) 2 puff IH Q4H PRN PRN Reason: SHORT OF BREATH/WHEEZING Lorazepam (Ativan Injection -) 1 mg IVPUSH Q8H PRN PRN Reason: ANXIETY Last Admin: 12/22/19 12:07 Dose: 1 mg Documented by: - Objective Vital Signs: Vital Signs Temperature 98.0 F 12/22/19 15:26 Pulse Rate 91 H 12/22/19 15:26 Respiratory Rate 18 12/22/19 15:26 Blood Pressure 104/61 12/22/19 15:26 O2 Sat by Pulse Oximetry (%) 97 12/22/19 09:00 Constitutional: Yes: Well Nourished, No Distress, Calm Eyes: Yes: WNL, Conjunctiva Clear, EOM Intact, Occular Prosthesis HENT: Yes: WNL, Atraumatic, Normocephalic Neck: Yes: WNL, Supple, Trachea Midline, Thyromegaly Cardiovascular: Yes: WNL Respiratory: Yes: WNL, Regular, CTA Bilaterally Gastrointestinal: Yes: WNL, Normal Bowel Sounds, Soft Musculoskeletal: Yes: WNL Extremities: Yes: WNL Edema: No Peripheral Pulses WNL: Yes Peripheral Pulses: Left Doralis Pedis: 2+, Right Dorsalis Pedis: 2+ Integumentary: Yes: WNL Neurological: Yes: WNL, Alert, Oriented ...Motor Strength: WNL Psychiatric: Yes: WNL, Alert, Oriented Labs: CBC, BMP 12/22/19 06:25 12/22/19 06:25 INR, PTT INR 0.86 (0.83-1.09) 12/21/19 06:46 Impression/Plan Impression/Plan: 39 year old undomiciled (per chart, pt denies)transgender transitioning from male to female - identifies as female, with a PMH of HIV disease (nonadherent with HAART because doesn't have PCP, last CD4 95 05/01/19, last viral load unknown), NIDDM (not taking medications), polysubstance abuse (pt denies; per chart: cocaine, alcohol, tobacco), and COPD presents from home for 3 days of cough productive of phlegm and intermittently bright red blood (minimal), profuse watery diarrhea bloody dark, and fever/chills. #Hemoptysis, and cough CT chest with extensive chronic lung disease On iv bactrim empirical treatment, to cover for oppurtunistic infection, ID consult consulted rule out TB will get sputum c&s and quantefron, Pulmonology consult, #Bloody diarrhea, CT abd/pelvis on admission with no acute findings. stool ob rule out oppurtunistic infections, Appreciate GI evaluation #HIV Awaiting viral load cd 8 and cd4 count, poor outpatient follow-up #Dvt prophylaxis, scd, no AC bloody diarroea, and also hemptysis, Visit type - Emergency Visit Emergency Visit: Yes ED Registration Date: 12/21/19 Care time: The patient presented to the Emergency Department on the above date and was hospitalized for further evaluation of their emergent condition. - New Patient This patient is new to me today: Yes Date on this admission: 12/22/19 - Critical Care Critical Care patient: No - Discharge Referral Referred to [facility] Med P.C.: No
--- NOTE | 2019-12-22 17:19 | PN.GI ---
GI Progress Note Subjective: 39 year old undomiciled (per chart, pt denies)transgender transitioning from male to female - identifies as female, with a PMH of HIV disease (nonadherent with HAART because doesn't have PCP, last CD4 95 05/01/19, last viral load unknown), NIDDM (not taking medications), polysubstance abuse (pt denies; per chart: cocaine, alcohol, tobacco), and COPD presents from home for 3 days of cough productive of phlegm and intermittently bright red blood (minimal), profuse watery diarrhea bloody dark, and fever/chills. stilll with diarrhea - Objective Vital Signs: Vital Signs Temperature 98.0 F 12/22/19 15:26 Pulse Rate 91 H 12/22/19 15:26 Respiratory Rate 18 12/22/19 15:26 Blood Pressure 104/61 12/22/19 15:26 O2 Sat by Pulse Oximetry (%) 97 12/22/19 09:00 Constitutional: Well Nourished Eyes: Yes: Conjunctiva Clear HENT: Yes: Atraumatic Neck: Yes: Supple Cardiovascular: Yes: Regular Rate and Rhythm Respiratory: Yes: CTA Bilaterally ...Palpate: Yes: Soft. No: Firm/Rigid, Guarding, Hepatomegaly, Mass, Pulsatile Mass, Splenomegaly, Tenderness Labs: CBC, BMP 12/22/19 06:25 12/22/19 06:25 INR, PTT INR 0.86 (0.83-1.09) 12/21/19 06:46 Problem List - Problems (1) Diarrhea Assessment/Plan: R> await stool analysis low fiber lactose free diet Code(s): R19.7 - DIARRHEA, UNSPECIFIED
--- NOTE | 2019-12-22 17:52 | EKG ---
Test Reason : Blood Pressure : / mmHG Vent. Rate : 072 BPM Atrial Rate : 072 BPM P-R Int : 132 ms QRS Dur : 088 ms QT Int : 406 ms P-R-T Axes : 079 086 063 degrees QTc Int : 444 ms NORMAL SINUS RHYTHM NONSPECIFIC T WAVE ABNORMALITY ABNORMAL ECG WHEN COMPARED WITH ECG OF 01-MAY-2019 09:28, QT HAS LENGTHENED Confirmed by MD Irwin, Arvind ([id number]) on 12/22/2019 5:52:05 PM Referred By: Confirmed By:Arvind Gayle MD
--- NOTE | 2019-12-22 19:43 | PN ---
Progress Note, Physician History of Present Illness: AWAKE, AMBULATORY CO GENERALIZED BODY PAIN AFEBRILE LEUKOPENIC CULTURES PENDING - Current Medication List Current Medications: Active Medications Acetaminophen (Tylenol -) 650 mg PO Q4H PRN PRN Reason: FEVER Albuterol Sulfate (Ventolin Hfa Inhaler -) 2 puff IH Q4H PRN PRN Reason: SHORT OF BREATH/WHEEZING Lorazepam (Ativan Injection -) 1 mg IVPUSH Q8H PRN PRN Reason: ANXIETY Last Admin: 12/22/19 12:07 Dose: 1 mg Documented by: Oxycodone HCl (Roxicodone -) 5 mg PO Q4H PRN PRN Reason: PAIN LEVEL 7 - 10 - Objective Vital Signs: Vital Signs Temperature 98.0 F 12/22/19 15:26 Pulse Rate 91 H 12/22/19 15:26 Respiratory Rate 18 12/22/19 15:26 Blood Pressure 104/61 12/22/19 15:26 O2 Sat by Pulse Oximetry (%) 97 12/22/19 09:00 Constitutional: Yes: No Distress, Cachectic Cardiovascular: Yes: Regular Rate and Rhythm, S1, S2 Respiratory: Yes: CTA Bilaterally Gastrointestinal: Yes: Normal Bowel Sounds, Soft Edema: No Labs: CBC, BMP 12/22/19 06:25 12/22/19 06:25 INR, PTT INR 0.86 (0.83-1.09) 12/21/19 06:46 Assessment/Plan HIV?AIDS HEMOPTYSIS R/O PNEUMONIA GASTROENTERITIS AWAIT STOOL STUDIES CD4 COUNT
[2019-12-23] MEDS: oxyCODONE HCL 5 MG TABLET PO PRN ×2 (01:23→18:02)
[2019-12-23] MEDS: LORazepam 2 MG/ML SDV VIAL IVPUSH PRN ×3 (03:55→18:02)
--- NOTE | 2019-12-23 09:04 | PN ---
Progress Note, Physician Chief Complaint: Seen and examined in bed. Transgender male-identifies as female-goes by "[facility]" C/o pain to cervical area down to lumbar region-no history of trauma. States still have bloody diarrhea and hemoptysis-none witnessed overnight. States she feels anxious-requesting additional pain/anxiolytic. R/o for TB and COVID. Undomiciled-staying with friend. HIV+ with no recent HAARt tx or follow up in 2 years. CD4 count pending History of Present Illness: 39yo undomiciled (per chart, pt denies)transgender transitioning from male to female - identifies as female, with a PMH of HIV disease (nonadherent with HAART because doesn't have PCP, last CD4 95 05/01/19, last viral load unknown), NIDDM (not taking medications), polysubstance abuse (pt denies; per chart: cocaine, alcohol, tobacco), and COPD presents from home for 3 days of cough productive of phlegm and intermittently bright red blood (minimal), profuse watery diarrhea bloody dark, and fever/chills. - Current Medication List Current Medications: Active Medications Acetaminophen (Tylenol -) 650 mg PO Q4H PRN PRN Reason: FEVER Albuterol Sulfate (Ventolin Hfa Inhaler -) 2 puff IH Q4H PRN PRN Reason: SHORT OF BREATH/WHEEZING Lorazepam (Ativan Injection -) 1 mg IVPUSH Q8H PRN PRN Reason: ANXIETY Last Admin: 12/23/19 03:55 Dose: 1 mg Documented by: Oxycodone HCl (Roxicodone -) 5 mg PO Q4H PRN PRN Reason: PAIN LEVEL 7 - 10 Last Admin: 12/23/19 01:23 Dose: 5 mg Documented by: - Objective Vital Signs: Vital Signs Temperature 98.5 F 12/23/19 06:17 Pulse Rate 86 12/23/19 06:17 Respiratory Rate 18 12/23/19 06:17 Blood Pressure 109/55 L 12/23/19 06:17 O2 Sat by Pulse Oximetry (%) 97 12/22/19 21:00 Constitutional: Yes: Anxious, Cachectic Eyes: Yes: WNL, Conjunctiva Clear, EOM Intact HENT: Yes: WNL, Atraumatic, Normocephalic Neck: Yes: Tenderness (TTP to cervical region), Other Cardiovascular: Yes: WNL, Regular Rate and Rhythm Respiratory: Yes: WNL, Regular, CTA Bilaterally, Diminished (at bases), Other (on RA. Report hemoptysis overnight) Gastrointestinal: Yes: WNL, Normal Bowel Sounds, Soft, Other (nausea) ...Rectal Exam: Yes: Deferred Genitourinary: Yes: WNL Breast(s): Yes: WNL Musculoskeletal: Yes: WNL Extremities: Yes: WNL Edema: No Peripheral Pulses WNL: Yes Peripheral Pulses: Left Radial: 2+, Right Radial: 2+, Left Doralis Pedis: 2+, Right Dorsalis Pedis: 2+, Left Femoral: 2+, Right Femoral: 2+ Integumentary: Yes: Tattoos Neurological: Yes: WNL, Alert, Oriented, Lethargy ...Motor Strength: WNL Psychiatric: Yes: Alert Labs: CBC, BMP 12/22/19 06:25 12/22/19 06:25 INR, PTT INR 0.86 (0.83-1.09) 12/21/19 06:46 - ....Imaging Cat Scan: Report Reviewed (CT chest-extensice chronic paola dz A/P no acute pathology) Problem List - Problems (1) Diabetes Assessment/Plan: not on any meds at home BGM AC/HS with novolog sliding scale diabetic diet Code(s): E11.9 - TYPE 2 DIABETES MELLITUS WITHOUT COMPLICATIONS (2) Polysubstance (excluding opioids) dependence Assessment/Plan: lonstanding use reports recent cocaine use no tox screen sent on admission will send Utox counseld on cessation offered referral to rehab and declined-will offer again if tox screen is positive Code(s): F19.20 - OTHER PSYCHOACTIVE SUBSTANCE DEPENDENCE, UNCOMPLICATED (3) COPD (chronic obstructive pulmonary disease) Assessment/Plan: chronic lung dx on CT Pulm following Sputum for PCP & AFB (2 sent) pending Supplemental O2 as needed: currently saturating 98% on RA Monitor and quantify hemoptysis Inh BD PRN cryptococcal antigen pending Quant gold pending maintain airborne/droplet precautions COVID PCR pending Code(s): J44.9 - CHRONIC OBSTRUCTIVE PULMONARY DISEASE, UNSPECIFIED (4) Prophylactic measure Assessment/Plan: FEN Fluids: poor PO intake Electrolytes: monitor & replete as needed Nutrition: low fiber/lactose free diet-RD consult requested-supplements ordered DVT no chemical AC Dispo Maintain as inpatient full code discharge planning to home with community referrals-currently undomiciled Code(s): Z29.9 - ENCOUNTER FOR PROPHYLACTIC MEASURES, UNSPECIFIED (5) Hemoptysis Assessment/Plan: quantify amount-1 episode o/n no chemcial AC Pulm following saline nebs prn r/o TB/pcp pending quant gold negative 2018 Code(s): R04.2 - HEMOPTYSIS (6) HIV (human immunodeficiency virus infection) Assessment/Plan: no HAARt therapy Referral to [facility] on dc CDR count pending ID following Code(s): B20 - HUMAN IMMUNODEFICIENCY VIRUS [HIV] DISEASE Qualifiers: HIV symptom status: unspecified Qualified Code(s): B20 - Human immunodeficiency virus [HIV] disease (7) Transgender Assessment/Plan: Transgender male-identifies as female-goes by "Blanca" Code(s): F64.0 - TRANSSEXUALISM (8) Diarrhea Assessment/Plan: wait stool analysis low fiber lactose free diet If stool testing negative and still symptomatic, when COVID-19 and pulmonary TB excluded EGD/Colonoscopy could be performed for further evaluation. Code(s): R19.7 - DIARRHEA, UNSPECIFIED (9) COVID-19 Assessment/Plan: COVID Suspicion low On RA strict airborne/droplet precautions until resulted Code(s): U07.1 - COVID POSITIVE (10) Leukopenia Assessment/Plan: improving afberile c/t monitor Code(s): D72.819 - DECREASED WHITE BLOOD CELL COUNT, UNSPECIFIED (11) Severe malnutrition Assessment/Plan: severe malnutrition as evidence by BMI19 temporal and muscle wasting, bony promoinces requested for RD consultation nutritional supplements MVI Code(s): E43 - UNSPECIFIED SEVERE PROTEIN-CALORIE MALNUTRITION Visit type - Emergency Visit Emergency Visit: Yes ED Registration Date: 12/21/19 Care time: The patient presented to the Emergency Department on the above date and was hospitalized for further evaluation of their emergent condition. - New Patient This patient is new to me today: Yes Date on this admission: 12/23/19 - Critical Care Critical Care patient: No - Discharge Referral Referred to [facility] Med P.C.: No
[2019-12-23 12:49] LABS: BASO % 0.7 % (0-2.0); EOS % 4.2 % (0-4.5); HEMATOCRIT 34.3 % (35.4-49); HEMOGLOBIN 10.9 GM/dL (11.7-16.9); LYMPH % 23.8 % (8-40); MCH 23.5 pg (25.7-33.7); MCHC 31.7 g/dl (32.0-35.9); MEAN CELL VOLUME 74.1 fl (80-96); MEAN PLT VOLUME 6.9 fl (7.5-11.1); MONO % 13.6 % (3.8-10.2); NEUT % 57.7 % (42.8-82.8); PLATELET COUNT 453 K/MM3 (134-434); RBC 4.63 M/mm3 (4.00-5.60)
--- NOTE | 2019-12-23 12:58 | PN ---
Progress Note (short form) - Note Progress Note: OOB to chair. Comfortable on RA. Reports minimal amount of dark hemoptysis x 1 episode overnight. No acute events overnight. Intake & Output 12/20/19 12/21/19 12/22/19 12/23/19 23:59 23:59 23:59 23:59 Intake Total 1000 500 Balance 1000 500 Weight 108 lb 7 oz Last Vital Signs Temp Pulse Resp BP Pulse Ox 98.5 F 78 18 95/60 97 12/23/19 07:40 12/23/19 07:40 12/23/19 07:40 12/23/19 07:40 12/22/19 21:00 Active Medications Acetaminophen (Tylenol -) 650 mg PO Q4H PRN PRN Reason: FEVER Albuterol Sulfate (Ventolin Hfa Inhaler -) 2 puff IH Q4H PRN PRN Reason: SHORT OF BREATH/WHEEZING Lorazepam (Ativan Injection -) 1 mg IVPUSH Q6H PRN PRN Reason: ANXIETY Last Admin: 12/23/19 11:54 Dose: 1 mg Documented by: Oxycodone HCl (Roxicodone -) 5 mg PO Q4H PRN PRN Reason: PAIN LEVEL 7 - 10 Last Admin: 12/23/19 01:23 Dose: 5 mg Documented by: Constitutional: Yes: No Distress, Thin Eyes: Yes: Conjunctiva Clear, EOM Intact HENT: Yes: Atraumatic, Normocephalic Neck: Yes: Supple, Trachea Midline Cardiovascular: Yes: Regular Rate and Rhythm Respiratory: Yes: Cough, Diminished, Rhonchi. No: Accessory Muscle Use, Rales, SOB, SOB on Exertion, Stridor, Tachypnea, Wheezes ...Inspection: Yes: WNL ...Clubbing: No Gastrointestinal: Yes: Normal Bowel Sounds, Soft Renal/: Yes: WNL Musculoskeletal: Yes: WNL Extremities: Yes: WNL Edema: No Peripheral Pulses WNL: Yes Integumentary: Yes: WNL Neurological: Yes: WNL, Alert, Oriented ...Motor Strength: WNL Psychiatric: Yes: WNL, Alert, Oriented Labs: Laboratory Results - last 24 hr 12/22/19 12/23/19 06:25 11:05 WBC 4.0 RBC 4.63 Hgb 10.9 L Hct 34.3 L MCV 74.1 L MCH 23.5 L MCHC 31.7 L RDW 18.0 H Plt Count 453 H MPV 6.9 L Absolute Neuts (auto) 2.3 Neutrophils % 57.7 Lymphocytes % 23.8 Monocytes % 13.6 H Eosinophils % 4.2 Basophils % 0.7 Nucleated RBC % 0 [id number] 114 Imaging - Results Chest X-ray: Report Reviewed, Image Reviewed Cat Scan: Report Reviewed, Image Reviewed Problem List - Problems (1) Hemoptysis Code(s): R04.2 - HEMOPTYSIS (2) ILD (interstitial lung disease) Code(s): J84.9 - INTERSTITIAL PULMONARY DISEASE, UNSPECIFIED (3) Lung bullae Code(s): J43.9 - EMPHYSEMA, UNSPECIFIED (4) AIDS Code(s): B20 - HUMAN IMMUNODEFICIENCY VIRUS [HIV] DISEASE (5) Chest pain Code(s): R07.9 - CHEST PAIN, UNSPECIFIED Qualifiers: Chest pain type: unspecified Qualified Code(s): R07.9 - Chest pain, unspecified (6) Cough Code(s): R05 - COUGH (7) Gastritis Code(s): K29.70 - GASTRITIS, UNSPECIFIED, WITHOUT BLEEDING (8) HIV (human immunodeficiency virus infection) Code(s): B20 - HUMAN IMMUNODEFICIENCY VIRUS [HIV] DISEASE Qualifiers: HIV symptom status: unspecified Qualified Code(s): B20 - Human immunodeficiency virus [HIV] disease (9) Human immunodeficiency virus infection Code(s): Z21 - ASYMPTOMATIC HUMAN IMMUNODEFICIENCY VIRUS INFECTION STATUS Assessment/Plan Sputum for PCP & AFB Supplemental O2 as needed: currently saturating 98% on RA Monitor and quantify hemoptysis BD TX PRN Check cryptococcal antigen Check Quant gold Isolation Dr Cheng Problem List - Problems (1) Hemoptysis Code(s): R04.2 - HEMOPTYSIS (2) ILD (interstitial lung disease) Code(s): J84.9 - INTERSTITIAL PULMONARY DISEASE, UNSPECIFIED (3) Lung bullae Code(s): J43.9 - EMPHYSEMA, UNSPECIFIED (4) AIDS Code(s): B20 - HUMAN IMMUNODEFICIENCY VIRUS [HIV] DISEASE (5) Chest pain Code(s): R07.9 - CHEST PAIN, UNSPECIFIED Qualifiers: Chest pain type: unspecified Qualified Code(s): R07.9 - Chest pain, unspecified (6) Cough Code(s): R05 - COUGH (7) Gastritis Code(s): K29.70 - GASTRITIS, UNSPECIFIED, WITHOUT BLEEDING (8) HIV (human immunodeficiency virus infection) Code(s): B20 - HUMAN IMMUNODEFICIENCY VIRUS [HIV] DISEASE Qualifiers: HIV symptom status: unspecified Qualified Code(s): B20 - Human immunodeficiency virus [HIV] disease (9) Human immunodeficiency virus infection Code(s): Z21 - ASYMPTOMATIC HUMAN IMMUNODEFICIENCY VIRUS INFECTION STATUS
[2019-12-23 13:18] LABS: ALBUMIN 3.1 g/dl (3.4-5.0); BILIRUBIN,TOTAL 0.1 mg/dL (0.2-1); BLOOD UREA NITROGEN 24.4 mg/dL (7-18); CALCIUM 8.8 mg/dL (8.5-10.1); CREATININE 0.8 mg/dL (0.55-1.3); MAGNESIUM 2.2 mg/dL (1.8-2.4); POTASSIUM 4.5 mmol/L (3.5-5.1); TOT PROT 7.8 g/dl (6.4-8.2)
[2019-12-23] MEDS ORDERED: INSULIN (NOVOLOG) ASPART 100 UNITS/ML 10ML VIAL ONE (18:33)
[2019-12-24] MEDS: oxyCODONE HCL 5 MG TABLET PO PRN ×4 (00:37→20:33)
[2019-12-24] MEDS: LORazepam 2 MG/ML SDV VIAL IVPUSH PRN ×4 (00:37→19:19)
[2019-12-24] MEDS: MULTIVITAMINS THER W-MINERALS COMBO TABLET (FP) PO SCH (09:23)
--- NOTE | 2019-12-24 10:08 | PN ---
Physical Exam: SUBJECTIVE: Patient seen and examined. She tells me that she feels weak, had an episode of black stool this a.m. CBC pending. OBJECTIVE: Patient is a 39 year old transgender, transitioning from male to female (identifies as female). Patient with a PMH of HIV disease (nonadherent with HAART because doesn't have PCP, last CD4 95 05/01/19, last viral load unknown), NIDDM (not taking medications), polysubstance abuse (pt denies), and COPD. She presents from home for 3 days of cough productive of phlegm and intermittently bright red blood (minimal), profuse watery diarrhea bloody dark, and fever/chills. ----- labs pending. covid negative tb pending Vital Signs Period Temp Pulse Resp BP Sys/Newton Pulse Ox Last 24 Hr 98 F-98.4 F 72-91 18-18 92-110/53-60 97 GENERAL: The patient is awake, alert, and fully oriented, in no acute distress. cachectic, weak appearing HEAD: Normal with no signs of trauma. EYES: PERRL, extraocular movements intact, sclera anicteric, conjunctiva clear. No ptosis. ENT: Ears normal, nares patent, oropharynx clear without exudates NECK: Trachea midline, full range of motion, supple. LUNGS: Breath sounds equal, clear to auscultation bilaterally, no wheezes HEART: Regular rate and rhythm ABDOMEN: Soft, nontender, nondistended, normoactive bowel sounds EXTREMITIES: no edema. NEUROLOGICAL: Normal speech, gait not observed. PSYCH: Normal mood, normal affect. SKIN: Warm, dry, normal turgor, no rashes or lesions noted Laboratory Results - last 24 hr 12/23/19 12/23/19 11:05 11:05 WBC 4.0 RBC 4.63 Hgb 10.9 L Hct 34.3 L MCV 74.1 L MCH 23.5 L MCHC 31.7 L RDW 18.0 H Plt Count 453 H MPV 6.9 L Absolute Neuts (auto) 2.3 Neutrophils % 57.7 Lymphocytes % 23.8 Monocytes % 13.6 H Eosinophils % 4.2 Basophils % 0.7 Nucleated RBC % 0 Sodium 137 Potassium 4.5 Chloride 106 Carbon Dioxide 21 Anion Gap 9 BUN 24.4 H Creatinine 0.8 Est GFR (CKD-EPI)AfAm 132.27 Est GFR (CKD-EPI)NonAf 114.12 Random Glucose 72 L Calcium 8.8 Magnesium 2.2 Total Bilirubin 0.1 L AST 28 ALT 18 Alkaline Phosphatase 77 Total Protein 7.8 Albumin 3.1 L Active Medications Generic Name Dose Route Start Last Admin Trade Name Freq PRN Reason Stop Dose Admin Acetaminophen 650 mg 12/21/19 10:19 Tylenol - PO Q4H PRN FEVER Albuterol Sulfate 2 puff 12/21/19 11:05 Ventolin Hfa Inhaler - IH Q4H PRN SHORT OF BREATH/WHEEZING Lorazepam 1 mg 12/23/19 11:25 12/24/19 06:44 Ativan Injection - IVPUSH 1 mg Q6H PRN Administration ANXIETY Multivitamins/Minerals 1 each 12/24/19 10:00 12/24/19 09:23 Theragran-M PO 1 each DAILY CALVIN Administration Oxycodone HCl 5 mg 12/22/19 17:23 12/24/19 06:44 Roxicodone - PO 5 mg Q4H PRN Administration PAIN LEVEL 7 - 10 ASSESSMENT/PLAN: Problem List - Problems (1) COPD (chronic obstructive pulmonary disease) Assessment/Plan: extensive chronic lung dx on CT Pulm following Sputum for PCP & AFB pending Supplemental O2 as needed: currently saturating 98% on RA Monitor and quantify hemoptysis Inh BD PRN cryptococcal antigen pending Quant gold pending maintain airborne/droplet precautions COVID PCR negative Code(s): J44.9 - CHRONIC OBSTRUCTIVE PULMONARY DISEASE, UNSPECIFIED (2) COVID-19 Assessment/Plan: negative Code(s): U07.1 - COVID POSITIVE (3) Diabetes Assessment/Plan: monitor bgms Code(s): E11.9 - TYPE 2 DIABETES MELLITUS WITHOUT COMPLICATIONS (4) Diarrhea Assessment/Plan: resolved Code(s): R19.7 - DIARRHEA, UNSPECIFIED (5) Hemoptysis Assessment/Plan: quantify, monitor. reports one episode of hemoptysis today Code(s): R04.2 - HEMOPTYSIS (6) Leukopenia Assessment/Plan: cbc daily Code(s): D72.819 - DECREASED WHITE BLOOD CELL COUNT, UNSPECIFIED (7) [id number] transgender person Assessment/Plan: supportive care Code(s): F64.0 - TRANSSEXUALISM (8) Polysubstance (excluding opioids) dependence Code(s): F19.20 - OTHER PSYCHOACTIVE SUBSTANCE DEPENDENCE, UNCOMPLICATED (9) Prophylactic measure Code(s): Z29.9 - ENCOUNTER FOR PROPHYLACTIC MEASURES, UNSPECIFIED (10) Severe malnutrition Code(s): E43 - UNSPECIFIED SEVERE PROTEIN-CALORIE MALNUTRITION (11) Cough Code(s): R05 - COUGH (12) HIV (human immunodeficiency virus infection) Assessment/Plan: pending Code(s): B20 - HUMAN IMMUNODEFICIENCY VIRUS [HIV] DISEASE Qualifiers: HIV symptom status: unspecified Qualified Code(s): B20 - Human immunodeficiency virus [HIV] disease Visit type - Emergency Visit Emergency Visit: Yes ED Registration Date: 12/21/19 Care time: The patient presented to the Emergency Department on the above date and was hospitalized for further evaluation of their emergent condition. - New Patient This patient is new to me today: Yes Date on this admission: 12/24/19 - Critical Care Critical Care patient: No - Discharge Referral Referred to [facility] Med P.C.: No
[2019-12-24 10:53] LABS: BASO % 0.7 % (0-2.0); EOS % 5.5 % (0-4.5); HEMATOCRIT 33.7 % (35.4-49); HEMOGLOBIN 10.7 GM/dL (11.7-16.9); LYMPH % 24.7 % (8-40); MCH 23.4 pg (25.7-33.7); MCHC 31.6 g/dl (32.0-35.9); MEAN PLT VOLUME 6.9 fl (7.5-11.1); MONO % 14.9 % (3.8-10.2); NEUT % 54.2 % (42.8-82.8); PLATELET COUNT 421 K/MM3 (134-434); RBC 4.56 M/mm3 (4.00-5.60); RDW 17.9 % (11.9-15.9); WHITE BLOOD COUNT 3.3 K/mm3 (4.0-10.0)
[2019-12-24 11:18] LABS: BILIRUBIN,TOTAL 0.1 mg/dL (0.2-1); BLOOD UREA NITROGEN 24.9 mg/dL (7-18); CALCIUM 8.9 mg/dL (8.5-10.1); CREATININE 0.9 mg/dL (0.55-1.3); MAGNESIUM 2.2 mg/dL (1.8-2.4); POTASSIUM 4.2 mmol/L (3.5-5.1); TOT PROT 7.5 g/dl (6.4-8.2)
--- NOTE | 2019-12-24 12:05 | PN ---
Progress Note (short form) - Note Progress Note: no fevers no hypoxia 2 bms daily Vital Signs Period Temp Pulse Resp BP Sys/Newton Pulse Ox Last 24 Hr 98 F-98.4 F 68-91 18-18 92-110/53-60 97 cor-rrr llungs clear abd soft,nt ext no edema CBC, BMP 12/24/19 09:22 12/24/19 09:22 Microbiology 12/21/19 20:00 Sputum - Expectorated Gram Stain - Final 12/21/19 20:00 Sputum - Expectorated Sputum Culture - Final NORMAL RESPIRATORY CRISTY 12/23/19 07:40 Sputum - Expectorated AFB Smear Concentration - Preliminary 12/23/19 07:40 Sputum - Expectorated Mycobacterial Culture - Preliminary 12/21/19 20:00 Sputum - Expectorated AFB Smear Concentration - Preliminary 12/21/19 20:00 Sputum - Expectorated Mycobacterial Culture - Preliminary 12/21/19 06:46 Blood - Peripheral Venous Blood Culture - Preliminary NO GROWTH OBTAINED AFTER 72 HOURS, INCUBATION TO CONTINUE FOR 2 DAYS. 12/21/19 06:46 Blood - Peripheral Venous Blood Culture - Preliminary NO GROWTH OBTAINED AFTER 72 HOURS, INCUBATION TO CONTINUE FOR 2 DAYS. 12/23/19 02:40 Stool Cryptosporidium Antigen - Final 12/23/19 02:40 Stool Giardia Antigen (SABA) - Final 12/21/19 16:00 Urine - Urine Clean Catch Urine Culture - Final Normal Urogenital Cristy 12/22/19 00:00 Urine For Antigen Detection Legionella Antigen - Final 12/22/19 00:00 Urine For Antigen Detection Streptococcus pneumoniae Antigen (M - Final a/p probable AIDs possible hemoptysis- no signs of bacterial pneumonia on chest ct diarrhea advanced copd- check alpha 1 antitryspin level, ?copd exacerbation stool studies cd4 count nodules in lung- check for afb disease, cryptococcal antigen, blood afb quant gold has been on cephalosporins in the past check ldh and fungitell afb isolation-2 sputums sent covid pcr negative serologies and tcells still pending if cd4 is less then 200 start bactrim one DS daily for PCP prophylaxis
--- NOTE | 2019-12-24 14:24 | PN ---
Progress Note (short form) - Note Progress Note: Comfortable on RA. Reports minimal amount of dark hemoptysis x 1 episode overnight. No acute events overnight. Intake & Output 12/21/19 12/22/19 12/23/19 12/24/19 23:59 23:59 23:59 23:59 Intake Total 1000 500 Balance 1000 500 Weight 108 lb 7 oz Last Vital Signs Temp Pulse Resp BP Pulse Ox 98.2 F 68 18 100/58 L 97 12/24/19 10:00 12/24/19 10:00 12/24/19 10:00 12/24/19 10:00 12/23/19 21:00 Active Medications Acetaminophen (Tylenol -) 650 mg PO Q4H PRN PRN Reason: FEVER Albuterol Sulfate (Ventolin Hfa Inhaler -) 2 puff IH Q4H PRN PRN Reason: SHORT OF BREATH/WHEEZING Lorazepam (Ativan Injection -) 1 mg IVPUSH Q6H PRN PRN Reason: ANXIETY Last Admin: 12/24/19 13:00 Dose: 1 mg Documented by: Multivitamins/Minerals (Theragran-M) 1 each PO DAILY CALVIN Last Admin: 12/24/19 09:23 Dose: 1 each Documented by: Oxycodone HCl (Roxicodone -) 5 mg PO Q4H PRN PRN Reason: PAIN LEVEL 7 - 10 Last Admin: 12/24/19 13:00 Dose: 5 mg Documented by: Constitutional: Yes: No Distress, Thin Eyes: Yes: Conjunctiva Clear, EOM Intact HENT: Yes: Atraumatic, Normocephalic Neck: Yes: Supple, Trachea Midline Cardiovascular: Yes: Regular Rate and Rhythm Respiratory: Yes: Cough, Diminished, Rhonchi. No: Accessory Muscle Use, Rales, SOB, SOB on Exertion, Stridor, Tachypnea, Wheezes ...Inspection: Yes: WNL ...Clubbing: No Gastrointestinal: Yes: Normal Bowel Sounds, Soft Renal/: Yes: WNL Musculoskeletal: Yes: WNL Extremities: Yes: WNL Edema: No Peripheral Pulses WNL: Yes Integumentary: Yes: WNL Neurological: Yes: WNL, Alert, Oriented ...Motor Strength: WNL Psychiatric: Yes: WNL, Alert, Oriented Labs: Laboratory Results - last 24 hr 12/24/19 12/24/19 09:22 09:22 WBC 3.3 L RBC 4.56 Hgb 10.7 L Hct 33.7 L MCV 74.0 L MCH 23.4 L MCHC 31.6 L RDW 17.9 H Plt Count 421 MPV 6.9 L Absolute Neuts (auto) 1.8 Neutrophils % 54.2 Lymphocytes % 24.7 Monocytes % 14.9 H Eosinophils % 5.5 H Basophils % 0.7 Nucleated RBC % 0 Sodium 138 Potassium 4.2 Chloride 104 Carbon Dioxide 24 Anion Gap 9 BUN 24.9 H Creatinine 0.9 Est GFR (CKD-EPI)AfAm 126.02 Est GFR (CKD-EPI)NonAf 108.73 Random Glucose 109 H Calcium 8.9 Magnesium 2.2 Total Bilirubin 0.1 L AST 25 ALT 19 Alkaline Phosphatase 73 Total Protein 7.5 Albumin 3.0 L Imaging - Results Chest X-ray: Report Reviewed, Image Reviewed Cat Scan: Report Reviewed, Image Reviewed Problem List - Problems (1) Hemoptysis Code(s): R04.2 - HEMOPTYSIS (2) ILD (interstitial lung disease) Code(s): J84.9 - INTERSTITIAL PULMONARY DISEASE, UNSPECIFIED (3) Lung bullae Code(s): J43.9 - EMPHYSEMA, UNSPECIFIED (4) AIDS Code(s): B20 - HUMAN IMMUNODEFICIENCY VIRUS [HIV] DISEASE (5) Chest pain Code(s): R07.9 - CHEST PAIN, UNSPECIFIED Qualifiers: Chest pain type: unspecified Qualified Code(s): R07.9 - Chest pain, unspecified (6) Cough Code(s): R05 - COUGH (7) Gastritis Code(s): K29.70 - GASTRITIS, UNSPECIFIED, WITHOUT BLEEDING (8) HIV (human immunodeficiency virus infection) Code(s): B20 - HUMAN IMMUNODEFICIENCY VIRUS [HIV] DISEASE Qualifiers: HIV symptom status: unspecified Qualified Code(s): B20 - Human immunodeficiency virus [HIV] disease (9) Human immunodeficiency virus infection Code(s): Z21 - ASYMPTOMATIC HUMAN IMMUNODEFICIENCY VIRUS INFECTION STATUS Assessment/Plan Sputum for PCP & AFB Supplemental O2 as needed: currently saturating 98% on RA Monitor and quantify hemoptysis BD TX PRN Isolation Dr Cheng Problem List - Problems (1) Hemoptysis Code(s): R04.2 - HEMOPTYSIS (2) ILD (interstitial lung disease) Code(s): J84.9 - INTERSTITIAL PULMONARY DISEASE, UNSPECIFIED (3) Lung bullae Code(s): J43.9 - EMPHYSEMA, UNSPECIFIED (4) AIDS Code(s): B20 - HUMAN IMMUNODEFICIENCY VIRUS [HIV] DISEASE (5) Chest pain Code(s): R07.9 - CHEST PAIN, UNSPECIFIED Qualifiers: Chest pain type: unspecified Qualified Code(s): R07.9 - Chest pain, unspecified (6) Cough Code(s): R05 - COUGH (7) Gastritis Code(s): K29.70 - GASTRITIS, UNSPECIFIED, WITHOUT BLEEDING (8) HIV (human immunodeficiency virus infection) Code(s): B20 - HUMAN IMMUNODEFICIENCY VIRUS [HIV] DISEASE Qualifiers: HIV symptom status: unspecified Qualified Code(s): B20 - Human immunodeficiency virus [HIV] disease (9) Human immunodeficiency virus infection Code(s): Z21 - ASYMPTOMATIC HUMAN IMMUNODEFICIENCY VIRUS INFECTION STATUS
[2019-12-24 15:05] LABS: COCAINE, UR NEGATIVE ng/ml (CUTOFF=300); OPIATES, URI NEGATIVE ng/ml (CUTOFF=300); PHENCYCLIDINE,URINE NEGATIVE ng/ml (CUTOFF=25); URINE BENZODIAZEPINES NEGATIVE ng/ml (CUTOFF=200)
[2019-12-24 15:06] LABS: METHADONE, UR NEGATIVE ng/ml (CUTOFF=300); URINE AMPHETAMINES NEGATIVE ng/ml (CUTOFF=500); URINE BARBITURATES NEGATIVE ng/ml (CUTOFF=200)
--- NOTE | 2019-12-24 16:03 | PN.GI ---
GI Progress Note Subjective: No acute events Complains of cough States that he had three diarrheal episodes mixed with blood today - Objective Vital Signs: Vital Signs Temperature 98.2 F 12/24/19 10:00 Pulse Rate 68 12/24/19 10:00 Respiratory Rate 18 12/24/19 10:00 Blood Pressure 100/58 L 12/24/19 10:00 O2 Sat by Pulse Oximetry (%) 97 12/23/19 21:00 Constitutional: Calm Eyes: No: Sclera Icterus Cardiovascular: Yes: Regular Rate and Rhythm Respiratory: Yes: CTA Bilaterally Gastrointestinal Inspection: No: Distention ...Auscultate: Yes: Normoactive Bowel Sounds ...Palpate: Yes: Soft. No: Hepatomegaly, Splenomegaly, Tenderness ...Percussion: No: Tympanitic Edema: No (No LE edema) Neurological: Yes: Alert Labs: CBC, BMP 12/24/19 09:22 12/24/19 09:22 INR, PTT INR 0.86 (0.83-1.09) 12/21/19 06:46 Problem List - Problems (1) Diarrhea Assessment/Plan: Stool studies pending. I did not see stool AFB pending. I ordered it again. ? if sent as sputum When ruled out for TB and if bloody diarrhea persists, EGD/Colonoscopy Code(s): R19.7 - DIARRHEA, UNSPECIFIED
[2019-12-24 22:45] VITALS: BMI 19.1
[2019-12-25] MEDS: LORazepam 2 MG/ML SDV VIAL IVPUSH PRN ×3 (01:08→12:56)
[2019-12-25] MEDS: oxyCODONE HCL 5 MG TABLET PO PRN ×4 (01:52→20:34)
[2019-12-25 08:44] LABS: BASO % 0.7 % (0-2.0); EOS % 7.8 % (0-4.5); HEMOGLOBIN 10.9 GM/dL (11.7-16.9); LYMPH % 28.6 % (8-40); MCH 23.6 pg (25.7-33.7); MCHC 31.9 g/dl (32.0-35.9); MEAN CELL VOLUME 73.8 fl (80-96); MEAN PLT VOLUME 6.9 fl (7.5-11.1); MONO % 16.9 % (3.8-10.2); PLATELET COUNT 410 K/MM3 (134-434); RBC 4.61 M/mm3 (4.00-5.60); RDW 17.9 % (11.9-15.9); WHITE BLOOD COUNT 3.6 K/mm3 (4.0-10.0)
[2019-12-25] MEDS: MULTIVITAMINS THER W-MINERALS COMBO TABLET (FP) PO SCH (09:07)
[2019-12-25 09:15] LABS: BILIRUBIN,TOTAL 0.3 mg/dL (0.2-1); BLOOD UREA NITROGEN 27.9 mg/dL (7-18); CALCIUM 8.5 mg/dL (8.5-10.1); MAGNESIUM 2.3 mg/dL (1.8-2.4); POTASSIUM 4.4 mmol/L (3.5-5.1); TOT PROT 7.5 g/dl (6.4-8.2)
--- NOTE | 2019-12-25 11:13 | PN ---
Physical Exam: SUBJECTIVE: Patient seen and examined. reports high anxiety w/o effect of anxiety. patient reports two episodes of bloody diarrhea and once episode of hemoptysis. OBJECTIVE: Patient is a 39 year old transgender, transitioning from male to female (identifies as female). Patient with a PMH of HIV disease (nonadherent with HAART because doesn't have PCP, last CD4 95 05/01/19, last viral load unknown), NIDDM (not taking medications), polysubstance abuse (pt denies), and COPD. She presents from home for 3 days of cough productive of phlegm and intermittently bright red blood (minimal), profuse watery diarrhea bloody dark, and fever/chills. covid status: negative as of 12/21/2019 Vital Signs Period Temp Pulse Resp BP Sys/Newton Pulse Ox Last 24 Hr 97.8 F-98.6 F 71-92 18-18 101-105/59-68 95 GENERAL: The patient is awake, alert, and fully oriented, in no acute distress. cachectic, weak appearing HEAD: Normal with no signs of trauma. EYES: PERRL, extraocular movements intact, sclera anicteric, conjunctiva clear. No ptosis. ENT: Ears normal, nares patent, oropharynx clear without exudates NECK: Trachea midline, full range of motion, supple. LUNGS: Breath sounds equal, clear to auscultation bilaterally, no wheezes HEART: Regular rate and rhythm ABDOMEN: Soft, nontender, nondistended, normoactive bowel sounds EXTREMITIES: no edema. NEUROLOGICAL: Normal speech, gait not observed. PSYCH: Normal mood, normal affect. SKIN: Warm, dry, normal turgor, no rashes or lesions noted Laboratory Results - last 24 hr 12/24/19 12/24/19 12/25/19 09:22 11:00 07:35 WBC 3.6 L RBC 4.61 Hgb 10.9 L Hct 34.0 L MCV 73.8 L MCH 23.6 L MCHC 31.9 L RDW 17.9 H Plt Count 410 MPV 6.9 L Absolute Neuts (auto) 1.7 Neutrophils % 46.0 Lymphocytes % 28.6 Monocytes % 16.9 H Eosinophils % 7.8 H Basophils % 0.7 Nucleated RBC % 0 Sodium 138 Potassium 4.2 Chloride 104 Carbon Dioxide 24 Anion Gap 9 BUN 24.9 H Creatinine 0.9 Est GFR (CKD-EPI)AfAm 126.02 Est GFR (CKD-EPI)NonAf 108.73 Random Glucose 109 H Calcium 8.9 Magnesium 2.2 Total Bilirubin 0.1 L AST 25 ALT 19 Alkaline Phosphatase 73 Total Protein 7.5 Albumin 3.0 L Opiates Screen Negative Methadone Screen Negative Barbiturate Screen Negative Phencyclidine Screen Negative Ur Amphetamines Screen Negative MDMA (Ecstasy) Screen Negative Benzodiazepines Screen Negative Cocaine Screen Negative U Marijuana (THC) Screen Negative 12/25/19 07:35 WBC RBC Hgb Hct MCV MCH MCHC RDW Plt Count MPV Absolute Neuts (auto) Neutrophils % Lymphocytes % Monocytes % Eosinophils % Basophils % Nucleated RBC % Sodium 137 Potassium 4.4 Chloride 104 Carbon Dioxide 26 Anion Gap 7 L BUN 27.9 H Creatinine 1.0 Est GFR (CKD-EPI)AfAm 110.94 Est GFR (CKD-EPI)NonAf 95.72 Random Glucose 65 L Calcium 8.5 Magnesium 2.3 Total Bilirubin 0.3 AST 24 ALT 17 Alkaline Phosphatase 73 Total Protein 7.5 Albumin 3.0 L Opiates Screen Methadone Screen Barbiturate Screen Phencyclidine Screen Ur Amphetamines Screen MDMA (Ecstasy) Screen Benzodiazepines Screen Cocaine Screen U Marijuana (THC) Screen Active Medications Generic Name Dose Route Start Last Admin Trade Name Freq PRN Reason Stop Dose Admin Acetaminophen 650 mg 12/21/19 10:19 Tylenol - PO Q4H PRN FEVER Albuterol Sulfate 2 puff 12/21/19 11:05 12/25/19 01:31 Ventolin Hfa Inhaler - IH 2 puff Q4H PRN Administration SHORT OF BREATH/WHEEZING Lorazepam 1 mg 12/23/19 11:25 12/25/19 07:26 Ativan Injection - IVPUSH 1 mg Q6H PRN Administration ANXIETY Multivitamins/Minerals 1 each 12/24/19 10:00 12/25/19 09:07 Theragran-M PO 1 each DAILY CALVIN Administration Oxycodone HCl 5 mg 12/22/19 17:23 12/25/19 08:04 Roxicodone - PO 5 mg Q4H PRN Administration PAIN LEVEL 7 - 10 ASSESSMENT/PLAN: Problem List - Problems (1) ILD (interstitial lung disease) Assessment/Plan: extensive chronic lung dx on CT. patient tolerating room air. covid 19 negative. Sputum for PCP & AFB pending Supplemental O2 as needed: currently saturating 98% on RA Monitor and quantify hemoptysis Inh BD PRN cryptococcal antigen pending Quant gold pending maintain airborne/droplet precautions COVID PCR negative Code(s): J84.9 - INTERSTITIAL PULMONARY DISEASE, UNSPECIFIED (2) COVID-19 Assessment/Plan: negative per serology Code(s): U07.1 - COVID POSITIVE (3) Diabetes Assessment/Plan: monitor bgms, not elevated. Code(s): E11.9 - TYPE 2 DIABETES MELLITUS WITHOUT COMPLICATIONS (4) Diarrhea Assessment/Plan: reports two loose bms mixed with blood, not collected as of this time. Code(s): R19.7 - DIARRHEA, UNSPECIFIED (5) Hemoptysis Assessment/Plan: quantify, monitor. reports one episode of hemoptysis last night Code(s): R04.2 - HEMOPTYSIS (6) Leukopenia Assessment/Plan: cbc daily, monitor. Code(s): D72.819 - DECREASED WHITE BLOOD CELL COUNT, UNSPECIFIED (7) [id number] transgender person Assessment/Plan: supportive care. patient takes estrogen injections every 2 weeks. Code(s): F64.0 - TRANSSEXUALISM (8) Polysubstance (excluding opioids) dependence Code(s): F19.20 - OTHER PSYCHOACTIVE SUBSTANCE DEPENDENCE, UNCOMPLICATED (9) Prophylactic measure Assessment/Plan: fen tolerating po monitor electrolytes low salt diet Code(s): Z29.9 - ENCOUNTER FOR PROPHYLACTIC MEASURES, UNSPECIFIED (10) Severe malnutrition Assessment/Plan: in the setting of chronic lung disease, HIV status. add supplements, RD following Code(s): E43 - UNSPECIFIED SEVERE PROTEIN-CALORIE MALNUTRITION (11) Cough Code(s): R05 - COUGH (12) HIV (human immunodeficiency virus infection) Assessment/Plan: pending labs Code(s): B20 - HUMAN IMMUNODEFICIENCY VIRUS [HIV] DISEASE Qualifiers: HIV symptom status: unspecified Qualified Code(s): B20 - Human immunodeficiency virus [HIV] disease (13) DVT prophylaxis Assessment/Plan: SCDs, no a/c ordered as patient reports bloody diarrhea and hemoptysis. Code(s): Z29.9 - ENCOUNTER FOR PROPHYLACTIC MEASURES, UNSPECIFIED Visit type - Emergency Visit Emergency Visit: Yes ED Registration Date: 12/21/19 Care time: The patient presented to the Emergency Department on the above date and was hospitalized for further evaluation of their emergent condition. - New Patient This patient is new to me today: No - Critical Care Critical Care patient: No - Discharge Referral Referred to [facility] No
[2019-12-25] MEDS ORDERED: LORazepam 1 MG TABLET PO PRN (11:27)
[2019-12-25] MEDS ORDERED: ZINC OXIDE/PANTHENOL/VITAMIN E 56 GM TUBE TP PRN (13:00)
--- NOTE | 2019-12-25 16:18 | PN ---
Progress Note (short form) - Note Progress Note: Comfortable on RA. Reports minimal amount of dark hemoptysis. No acute events overnight. Intake & Output 12/22/19 12/23/19 12/24/19 12/25/19 23:59 23:59 23:59 23:59 Intake Total 500 800 720 Output Total 600 Balance 500 800 120 Weight 108 lb Last Vital Signs Temp Pulse Resp BP Pulse Ox 98.6 F 92 H 18 91/52 L 95 12/25/19 13:40 12/25/19 13:40 12/25/19 13:40 12/25/19 13:40 12/24/19 21:00 Microbiology 12/24/19 10:50 MRSA Screen - Final Nares - Mrsa Screen - Left NO MRSA ISOLATED 12/24/19 10:50 MRSA Screen - Final Nares - Mrsa Screen - Right NO MRSA ISOLATED 12/23/19 07:40 AFB Smear Concentration - Final Sputum - Expectorated Mycobacterial Culture - Preliminary 12/23/19 02:40 Salmonella/Shigella Culture - Final Stool NO GROWTH OF SALMONELLA OR SHIGELLA SPECIES OBTAINED Campylobacter Culture - Final NO GROWTH OF CAMPYLOBACTER SPECIES OBTAINED Yersinia Culture - Final NO GROWTH OF YERSINIA SPECIES OBTAINED Vibrio Culture - Final NO GROWTH OF VIBRIO SPECIES OBTAINED Escherichia coli 0157 Culture - Final NO GROWTH OF E COLI 0157 OBTAINED 12/22/19 06:25 Cryptococcal Antigen - Preliminary Serum 12/21/19 06:46 Blood Culture - Preliminary Blood - Peripheral Venous NO GROWTH OBTAINED AFTER 96 HOURS, INCUBATION TO CONTINUE FOR 1 DAYS. 12/21/19 06:46 Blood Culture - Preliminary Blood - Peripheral Venous NO GROWTH OBTAINED AFTER 96 HOURS, INCUBATION TO CONTINUE FOR 1 DAYS. 12/23/19 02:40 Microsporidia Stain - Preliminary Stool 12/23/19 02:41 Isospora Smear - Preliminary Stool 12/22/19 06:25 Mycobacterial Culture - Preliminary Blood - Peripheral Venous Constitutional: Yes: No Distress, Thin Eyes: Yes: Conjunctiva Clear, EOM Intact HENT: Yes: Atraumatic, Normocephalic Neck: Yes: Supple, Trachea Midline Cardiovascular: Yes: Regular Rate and Rhythm Respiratory: Yes: Cough, Diminished, Rhonchi. No: Accessory Muscle Use, Rales, SOB, SOB on Exertion, Stridor, Tachypnea, Wheezes ...Inspection: Yes: WNL ...Clubbing: No Gastrointestinal: Yes: Normal Bowel Sounds, Soft Renal/: Yes: WNL Musculoskeletal: Yes: WNL Extremities: Yes: WNL Edema: No Peripheral Pulses WNL: Yes Integumentary: Yes: WNL Neurological: Yes: WNL, Alert, Oriented ...Motor Strength: WNL Psychiatric: Yes: WNL, Alert, Oriented Labs: Laboratory Results - last 24 hr 12/25/19 12/25/19 07:35 07:35 WBC 3.6 L RBC 4.61 Hgb 10.9 L Hct 34.0 L MCV 73.8 L MCH 23.6 L MCHC 31.9 L RDW 17.9 H Plt Count 410 MPV 6.9 L Absolute Neuts (auto) 1.7 Neutrophils % 46.0 Lymphocytes % 28.6 Monocytes % 16.9 H Eosinophils % 7.8 H Basophils % 0.7 Nucleated RBC % 0 Sodium 137 Potassium 4.4 Chloride 104 Carbon Dioxide 26 Anion Gap 7 L BUN 27.9 H Creatinine 1.0 Est GFR (CKD-EPI)AfAm 110.94 Est GFR (CKD-EPI)NonAf 95.72 Random Glucose 65 L Calcium 8.5 Magnesium 2.3 Total Bilirubin 0.3 AST 24 ALT 17 Alkaline Phosphatase 73 Total Protein 7.5 Albumin 3.0 L Imaging - Results Chest X-ray: Report Reviewed, Image Reviewed Cat Scan: Report Reviewed, Image Reviewed Problem List - Problems (1) Hemoptysis Code(s): R04.2 - HEMOPTYSIS (2) ILD (interstitial lung disease) Code(s): J84.9 - INTERSTITIAL PULMONARY DISEASE, UNSPECIFIED (3) Lung bullae Code(s): J43.9 - EMPHYSEMA, UNSPECIFIED (4) AIDS Code(s): B20 - HUMAN IMMUNODEFICIENCY VIRUS [HIV] DISEASE (5) Chest pain Code(s): R07.9 - CHEST PAIN, UNSPECIFIED Qualifiers: Chest pain type: unspecified Qualified Code(s): R07.9 - Chest pain, unspecified (6) Cough Code(s): R05 - COUGH (7) Gastritis Code(s): K29.70 - GASTRITIS, UNSPECIFIED, WITHOUT BLEEDING (8) HIV (human immunodeficiency virus infection) Code(s): B20 - HUMAN IMMUNODEFICIENCY VIRUS [HIV] DISEASE Qualifiers: HIV symptom status: unspecified Qualified Code(s): B20 - Human immunodeficiency virus [HIV] disease (9) Human immunodeficiency virus infection Code(s): Z21 - ASYMPTOMATIC HUMAN IMMUNODEFICIENCY VIRUS INFECTION STATUS Assessment/Plan Sputum for PCP & AFB Supplemental O2 as needed: currently saturating 98% on RA Monitor and quantify hemoptysis BD TX PRN Isolation Dr Cheng Problem List - Problems (1) Hemoptysis Code(s): R04.2 - HEMOPTYSIS (2) ILD (interstitial lung disease) Code(s): J84.9 - INTERSTITIAL PULMONARY DISEASE, UNSPECIFIED (3) Lung bullae Code(s): J43.9 - EMPHYSEMA, UNSPECIFIED (4) AIDS Code(s): B20 - HUMAN IMMUNODEFICIENCY VIRUS [HIV] DISEASE (5) Chest pain Code(s): R07.9 - CHEST PAIN, UNSPECIFIED Qualifiers: Chest pain type: unspecified Qualified Code(s): R07.9 - Chest pain, unspecified (6) Cough Code(s): R05 - COUGH (7) Gastritis Code(s): K29.70 - GASTRITIS, UNSPECIFIED, WITHOUT BLEEDING (8) HIV (human immunodeficiency virus infection) Code(s): B20 - HUMAN IMMUNODEFICIENCY VIRUS [HIV] DISEASE Qualifiers: HIV symptom status: unspecified Qualified Code(s): B20 - Human immunodeficiency virus [HIV] disease (9) Human immunodeficiency virus infection Code(s): Z21 - ASYMPTOMATIC HUMAN IMMUNODEFICIENCY VIRUS INFECTION STATUS
[2019-12-25] MEDS: MELATONIN 5 MG TABLETS PO PRN (22:33)
[2019-12-26] MEDS: LORazepam 2 MG/ML SDV VIAL IVPUSH PRN ×2 (00:56→06:57)
[2019-12-26] MEDS: oxyCODONE HCL 5 MG TABLET PO PRN ×2 (07:50→16:00)
[2019-12-26 08:00] LABS: BASO % 0.6 % (0-2.0); EOS % 6.7 % (0-4.5); HEMATOCRIT 34.6 % (35.4-49); HEMOGLOBIN 11.1 GM/dL (11.7-16.9); MCH 23.8 pg (25.7-33.7); MEAN CELL VOLUME 74.2 fl (80-96); MEAN PLT VOLUME 6.9 fl (7.5-11.1); MONO % 17.5 % (3.8-10.2); NEUT % 49.2 % (42.8-82.8); PLATELET COUNT 395 K/MM3 (134-434); RBC 4.67 M/mm3 (4.00-5.60); RDW 17.9 % (11.9-15.9); WHITE BLOOD COUNT 3.9 K/mm3 (4.0-10.0)
[2019-12-26 08:16] LABS: ALBUMIN 3.1 g/dl (3.4-5.0); BILIRUBIN,TOTAL 0.2 mg/dL (0.2-1); BLOOD UREA NITROGEN 27.9 mg/dL (7-18); CALCIUM 8.9 mg/dL (8.5-10.1); CREATININE 0.9 mg/dL (0.55-1.3); MAGNESIUM 2.4 mg/dL (1.8-2.4); POTASSIUM 4.5 mmol/L (3.5-5.1); TOT PROT 7.9 g/dl (6.4-8.2)
[2019-12-26] MEDS: MULTIVITAMINS THER W-MINERALS COMBO TABLET (FP) PO SCH (09:31)
--- NOTE | 2019-12-26 11:02 | PN ---
Progress Note (short form) - Note Progress Note: reports congestion reports blood in stools- no bloody stools noted by nursing staff eating well Vital Signs Period Temp Pulse Resp BP Sys/Newton Pulse Ox Last 24 Hr 97.8 F-99.2 F 80-92 18-20 91-109/52-66 95 cor-rrr lungs clear, decreased bs at bases abd soft,nt ext no edema CBC, BMP 12/26/19 07:00 12/26/19 07:00 Microbiology 12/25/19 10:30 Sputum - Expectorated AFB Smear Concentration - Preliminary 12/25/19 10:30 Sputum - Expectorated Mycobacterial Culture - Preliminary 12/21/19 06:46 Blood - Peripheral Venous Blood Culture - Final NO GROWTH AFTER 5 DAYS INCUBATION 12/21/19 06:46 Blood - Peripheral Venous Blood Culture - Final NO GROWTH AFTER 5 DAYS INCUBATION 12/24/19 10:50 Nares - Mrsa Screen - Left MRSA Screen - Final NO MRSA ISOLATED 12/24/19 10:50 Nares - Mrsa Screen - Right MRSA Screen - Final NO MRSA ISOLATED 12/23/19 07:40 Sputum - Expectorated AFB Smear Concentration - Final 12/23/19 07:40 Sputum - Expectorated Mycobacterial Culture - Preliminary 12/23/19 02:40 Stool Salmonella/Shigella Culture - Final NO GROWTH OF SALMONELLA OR SHIGELLA SPECIES OBTAINED 12/23/19 02:40 Stool Campylobacter Culture - Final NO GROWTH OF CAMPYLOBACTER SPECIES OBTAINED 12/23/19 02:40 Stool Yersinia Culture - Final NO GROWTH OF YERSINIA SPECIES OBTAINED 12/23/19 02:40 Stool Vibrio Culture - Final NO GROWTH OF VIBRIO SPECIES OBTAINED 12/23/19 02:40 Stool Escherichia coli 0157 Culture - Final NO GROWTH OF E COLI 0157 OBTAINED 12/22/19 06:25 Serum Cryptococcal Antigen - Preliminary 12/23/19 02:40 Stool Microsporidia Stain - Preliminary 12/23/19 02:41 Stool Isospora Smear - Preliminary 12/22/19 06:25 Blood - Peripheral Venous Mycobacterial Culture - Preliminary 12/21/19 20:00 Sputum - Expectorated Gram Stain - Final 12/21/19 20:00 Sputum - Expectorated Sputum Culture - Final NORMAL RESPIRATORY CRISTY 12/21/19 20:00 Sputum - Expectorated AFB Smear Concentration - Preliminary 12/21/19 20:00 Sputum - Expectorated Mycobacterial Culture - Preliminary 12/23/19 02:40 Stool Cryptosporidium Antigen - Final 12/23/19 02:40 Stool Giardia Antigen (SABA) - Final 12/21/19 16:00 Urine - Urine Clean Catch Urine Culture - Final Normal Urogenital Cristy 12/22/19 00:00 Urine For Antigen Detection Legionella Antigen - Final 12/22/19 00:00 Urine For Antigen Detection Streptococcus pneumoniae Antigen (M - Final Laboratory Tests 12/21/19 12/21/19 12/22/19 06:46 17:00 06:25 COVID-19 (SUE) Not detected TB Test (QFT) Negative Beta-(1,3)-D-Glucan < 31 a/p probable AIDs-cd4 count pending possible hemoptysis- no signs of bacterial pneumonia on chest ct diarrhea-appears resolved advanced copd- check alpha 1 antitryspin level, ?copd exacerbation stool studies cd4 count nodules in lung- check for afb disease, cryptococcal antigen, blood afb quant gold has been on cephalosporins in the past check ldh and fungitell afb isolation-3 sputums sent- called [facility] they will contact afb lab to get smear results quant negative if sputum afbs re negative can d/c isolation covid pcr negative tcells still pending if cd4 is less then 200 start bactrim one DS daily for PCP prophylaxis should f/u as outpt with HIV clinic near his home for f/u-
[2019-12-26] MEDS ORDERED: LORazepam 2 MG/ML SDV VIAL IVPUSH ONE (11:58)
--- NOTE | 2019-12-26 13:56 | PN.GI ---
GI Progress Note Subjective: PT IN THE BATHROOM - WILL ATTEMPT TO EVALUATE LATER TODAY ; PER RN - NO BRBR / MELENA SEEN BY STAFF. HE HAS NOT HAD ANY BM'S TODAY - Objective Vital Signs: Vital Signs Temperature 98.6 F 12/26/19 13:29 Pulse Rate 84 12/26/19 13:29 Respiratory Rate 20 12/26/19 13:29 Blood Pressure 93/44 L 12/26/19 13:29 O2 Sat by Pulse Oximetry (%) 95 12/25/19 21:00 Labs: CBC, BMP 12/26/19 07:00 12/26/19 07:00 INR, PTT INR 0.86 (0.83-1.09) 12/21/19 06:46 Problem List - Problems (1) AIDS Code(s): B20 - HUMAN IMMUNODEFICIENCY VIRUS [HIV] DISEASE (2) Diarrhea Assessment/Plan: H/H STABLE F/U STOOL STUDIES AFB PENDING LOW RESIDUE LACTOSE FREE DIET MAY NEED ENDOSCOPIC EVALUATION CONSIDERING THERE IS NO SIGN OF AN OVERT GI BLEED CAN HOLD OFF UNTIL INFECTIOUS EVALUATION IS RESULTED. Code(s): R19.7 - DIARRHEA, UNSPECIFIED
--- NOTE | 2019-12-26 15:38 | PN ---
Physical Exam: SUBJECTIVE: Patient seen and examined. very anxious today. patient reports one episode of bloody diarrhea and once episode of hemoptysis. OBJECTIVE: Patient is a 39 year old transgender, transitioning from male to female (identifies as female). Patient with a PMH of HIV disease (nonadherent with HAART because doesn't have PCP, last CD4 95 05/01/19, last viral load unknown), NIDDM (not taking medications), polysubstance abuse (pt denies), and COPD. She presents from home for 3 days of cough productive of phlegm and intermittently bright red blood (minimal), profuse watery diarrhea bloody dark, and fever/chills. ------- covid status: negative as of 12/21/2019 CT chest: extensive chronic lung dx on CT. patient tolerating room air. Period Temp Pulse Resp BP Sys/Newton Pulse Ox Last 24 Hr 97.8 F-99.2 F 80-91 18-20 93-109/44-66 95 GENERAL: The patient is awake, alert, and fully oriented, in no acute distress. cachectic HEAD: Normal with no signs of trauma. EYES: PERRL, extraocular movements intact, sclera anicteric, conjunctiva clear. No ptosis. ENT: Ears normal, nares patent, oropharynx clear without exudates NECK: Trachea midline, full range of motion, supple. LUNGS: Breath sounds equal, clear to auscultation bilaterally, no wheezes HEART: Regular rate and rhythm ABDOMEN: Soft, nontender, nondistended, normoactive bowel sounds EXTREMITIES: no edema. NEUROLOGICAL: Normal speech, gait not observed. PSYCH: Normal mood, normal affect. SKIN: Warm, dry, normal turgor, no rashes or lesions noted Laboratory Results - last 24 hr 12/21/19 12/22/19 12/26/19 17:00 06:25 07:00 WBC 3.9 L RBC 4.67 Hgb 11.1 L Hct 34.6 L MCV 74.2 L MCH 23.8 L MCHC 32.0 RDW 17.9 H Plt Count 395 MPV 6.9 L Absolute Neuts (auto) 1.9 Neutrophils % 49.2 Lymphocytes % 26.0 Monocytes % 17.5 H Eosinophils % 6.7 H Basophils % 0.6 Nucleated RBC % 0 Sodium Potassium Chloride Carbon Dioxide Anion Gap BUN Creatinine Est GFR (CKD-EPI)AfAm Est GFR (CKD-EPI)NonAf Random Glucose Calcium Magnesium Total Bilirubin AST ALT Alkaline Phosphatase Total Protein Albumin TB Test (QFT) Nil 0.03 TB Test (QFT) Mitogen >10.00 TB Test (QFT) Ag 1 0.03 TB Test (QFT) Ag 2 0.03 TB Test (QFT) Negative TB Positive Criteria Beta-(1,3)-D-Glucan < 31 12/26/19 07:00 WBC RBC Hgb Hct MCV MCH MCHC RDW Plt Count MPV Absolute Neuts (auto) Neutrophils % Lymphocytes % Monocytes % Eosinophils % Basophils % Nucleated RBC % Sodium 137 Potassium 4.5 Chloride 104 Carbon Dioxide 26 Anion Gap 8 BUN 27.9 H Creatinine 0.9 Est GFR (CKD-EPI)AfAm 126.02 Est GFR (CKD-EPI)NonAf 108.73 Random Glucose 81 Calcium 8.9 Magnesium 2.4 Total Bilirubin 0.2 AST 25 ALT 17 Alkaline Phosphatase 79 Total Protein 7.9 Albumin 3.1 L TB Test (QFT) Nil TB Test (QFT) Mitogen TB Test (QFT) Ag 1 TB Test (QFT) Ag 2 TB Test (QFT) TB Positive Criteria Beta-(1,3)-D-Glucan Active Medications Generic Name Dose Route Start Last Admin Trade Name Freq PRN Reason Stop Dose Admin Acetaminophen 650 mg 12/21/19 10:19 Tylenol - PO Q4H PRN FEVER Albuterol Sulfate 2 puff 12/21/19 11:05 12/25/19 01:31 Ventolin Hfa Inhaler - IH 2 puff Q4H PRN Administration SHORT OF BREATH/WHEEZING Lorazepam 2 mg 12/26/19 11:58 Ativan - PO Q6H PRN ANXIETY Melatonin 5 mg 12/25/19 21:54 12/25/19 22:33 Melatonin PO 5 mg HS PRN Administration INSOMNIA Multivitamins/Minerals 1 each 12/24/19 10:00 12/26/19 09:31 Theragran-M PO 1 each DAILY CALVIN Administration Oxycodone HCl 5 mg 12/22/19 17:23 12/26/19 07:50 Roxicodone - PO 5 mg Q4H PRN Administration PAIN LEVEL 7 - 10 Zinc Oxide/Panthenol/Vitamin E 1 applic 12/25/19 13:00 Balmex Cream - TP ASDIR PRN HYGEINE ASSESSMENT/PLAN: Problem List - Problems (1) ILD (interstitial lung disease) Assessment/Plan: extensive chronic lung dx on CT. patient tolerating room air. covid 19 negative. Sputum for PCP & AFB pending Supplemental O2 as needed: currently saturating 98% on RA Monitor and quantify hemoptysis Inh BD PRN cryptococcal antigen pending Quant gold pending maintain airborne/droplet precautions COVID PCR negative Code(s): J84.9 - INTERSTITIAL PULMONARY DISEASE, UNSPECIFIED (2) COVID-19 Assessment/Plan: negative per serology Code(s): U07.1 - COVID POSITIVE (3) Diabetes Assessment/Plan: monitor bgms, not elevated. Code(s): E11.9 - TYPE 2 DIABETES MELLITUS WITHOUT COMPLICATIONS (4) Diarrhea Assessment/Plan: reports one loose bms mixed with blood, not collected as of this time. Code(s): R19.7 - DIARRHEA, UNSPECIFIED (5) Hemoptysis Assessment/Plan: quantify, monitor. reports one episode of hemoptysis last night Code(s): R04.2 - HEMOPTYSIS (6) Leukopenia Assessment/Plan: cbc daily, monitor. Code(s): D72.819 - DECREASED WHITE BLOOD CELL COUNT, UNSPECIFIED (7) [id number] transgender person Assessment/Plan: supportive care. patient takes estrogen injections every 2 weeks. Code(s): F64.0 - TRANSSEXUALISM (8) Polysubstance (excluding opioids) dependence Code(s): F19.20 - OTHER PSYCHOACTIVE SUBSTANCE DEPENDENCE, UNCOMPLICATED (9) Severe malnutrition Assessment/Plan: in the setting of chronic lung disease, HIV status. add supplements, RD following Code(s): E43 - UNSPECIFIED SEVERE PROTEIN-CALORIE MALNUTRITION (10) Cough Code(s): R05 - COUGH (11) HIV (human immunodeficiency virus infection) Assessment/Plan: pending labs Code(s): B20 - HUMAN IMMUNODEFICIENCY VIRUS [HIV] DISEASE Qualifiers: HIV symptom status: unspecified Qualified Code(s): B20 - Human immunodeficiency virus [HIV] disease (12) DVT prophylaxis Assessment/Plan: SCDs, no a/c ordered as patient reports bloody diarrhea and hemoptysis. Code(s): Z29.9 - ENCOUNTER FOR PROPHYLACTIC MEASURES, UNSPECIFIED (13) Prophylactic measure Assessment/Plan: fen tolerating po monitor electrolytes low salt diet Code(s): Z29.9 - ENCOUNTER FOR PROPHYLACTIC MEASURES, UNSPECIFIED Visit type - Emergency Visit Emergency Visit: Yes ED Registration Date: 12/21/19 Care time: The patient presented to the Emergency Department on the above date and was hospitalized for further evaluation of their emergent condition. - New Patient This patient is new to me today: No - Critical Care Critical Care patient: No - Discharge Referral Referred to [facility] No
[2019-12-26] MEDS: LORazepam 1 MG TABLET PO PRN ×2 (18:11→23:56)
[2019-12-27] MEDS: MELATONIN 5 MG TABLETS PO PRN (02:40)
[2019-12-27 08:36] LABS: BASO % 0.6 % (0-2.0); EOS % 6.7 % (0-4.5); HEMATOCRIT 34.9 % (35.4-49); HEMOGLOBIN 11.1 GM/dL (11.7-16.9); LYMPH % 23.6 % (8-40); MCH 23.4 pg (25.7-33.7); MCHC 31.8 g/dl (32.0-35.9); MEAN CELL VOLUME 73.7 fl (80-96); MEAN PLT VOLUME 7.1 fl (7.5-11.1); MONO % 16.4 % (3.8-10.2); NEUT % 52.7 % (42.8-82.8); PLATELET COUNT 414 K/MM3 (134-434); RBC 4.73 M/mm3 (4.00-5.60); RDW 18.1 % (11.9-15.9); WHITE BLOOD COUNT 4.2 K/mm3 (4.0-10.0)
[2019-12-27 09:04] LABS: ALBUMIN 3.2 g/dl (3.4-5.0); BILIRUBIN,TOTAL 0.5 mg/dL (0.2-1); BLOOD UREA NITROGEN 25.9 mg/dL (7-18); CREATININE 0.9 mg/dL (0.55-1.3); MAGNESIUM 2.4 mg/dL (1.8-2.4); POTASSIUM 4.3 mmol/L (3.5-5.1); TOT PROT 8.1 g/dl (6.4-8.2)
[2019-12-27 09:18] LABS: CALCIUM 9.2 mg/dL (8.5-10.1)
[2019-12-27 09:27] VITALS: BP 106/60; PULSE 81; TEMP 98.5
[2019-12-27] MEDS: LORazepam 1 MG TABLET PO PRN (09:28)
[2019-12-27] MEDS: MULTIVITAMINS THER W-MINERALS COMBO TABLET (FP) PO SCH (09:29)
--- NOTE | 2019-12-27 11:12 | PN ---
Progress Note (short form) - Note Progress Note: came to see patient. Prolonged time in bathroom. PT has actually been waiting quite some time to evaluate as well. No diarrhea / rectal bleeding reported by nursing. D/W nursing staff regarding incorrect specimen collection under my name (sputum for AFB have been getting collected as opposed to stool). Problem List - Problems (1) Diarrhea Code(s): R19.7 - DIARRHEA, UNSPECIFIED
--- NOTE | 2019-12-27 15:46 | DS ---
Physical Exam: SUBJECTIVE: patient eloped. see primary knotter hand OBJECTIVE: patient not seen. informed patient eloped at around 11:55a.m. Vital Signs Period Temp Pulse Resp BP Sys/Newton Pulse Ox Last 24 Hr 98.2 F-98.9 F 73-88 18-20 90-106/50-60 97-97 PHYSICAL EXAM unable to be done as patient eloped LABS Laboratory Results - last 24 hr 12/23/19 12/27/19 12/27/19 02:41 07:52 07:52 WBC 4.2 RBC 4.73 Hgb 11.1 L Hct 34.9 L MCV 73.7 L MCH 23.4 L MCHC 31.8 L RDW 18.1 H Plt Count 414 MPV 7.1 L Absolute Neuts (auto) 2.2 Neutrophils % 52.7 Lymphocytes % 23.6 Monocytes % 16.4 H Eosinophils % 6.7 H Basophils % 0.6 Nucleated RBC % 0 Sodium 135 L Potassium 4.3 Chloride 103 Carbon Dioxide 30 Anion Gap 3 L BUN 25.9 H Creatinine 0.9 Est GFR (CKD-EPI)AfAm 126.02 Est GFR (CKD-EPI)NonAf 108.73 Random Glucose 83 Calcium 9.2 Magnesium 2.4 Total Bilirubin 0.5 AST 25 ALT 19 Alkaline Phosphatase 75 Total Protein 8.1 Albumin 3.2 L Stool O & P Wet [place] & P Permanent Slide Final report HOSPITAL COURSE: Date of Admission:12/21/19 Date of Discharge: 12/27/19 Minutes to complete discharge: 45 Discharge Summary Problems reviewed: Yes Reason For Visit: ACQUIRED IMMUNODEFICIENCY SYNDROME - Instructions Disposition: ELOPED Problem List - Problems (1) ILD (interstitial lung disease) Code(s): J84.9 - INTERSTITIAL PULMONARY DISEASE, UNSPECIFIED (2) COVID-19 Code(s): U07.1 - COVID POSITIVE (3) Diabetes Code(s): E11.9 - TYPE 2 DIABETES MELLITUS WITHOUT COMPLICATIONS (4) Diarrhea Code(s): R19.7 - DIARRHEA, UNSPECIFIED (5) Hemoptysis Code(s): R04.2 - HEMOPTYSIS (6) Leukopenia Code(s): D72.819 - DECREASED WHITE BLOOD CELL COUNT, UNSPECIFIED (7) [id number]-[id number] transgender person Code(s): F64.0 - TRANSSEXUALISM (8) Polysubstance (excluding opioids) dependence Code(s): F19.20 - OTHER PSYCHOACTIVE SUBSTANCE DEPENDENCE, UNCOMPLICATED (9) Severe malnutrition Code(s): E43 - UNSPECIFIED SEVERE PROTEIN-CALORIE MALNUTRITION (10) Cough Code(s): R05 - COUGH (11) HIV (human immunodeficiency virus infection) Code(s): B20 - HUMAN IMMUNODEFICIENCY VIRUS [HIV] DISEASE Qualifiers: HIV symptom status: unspecified Qualified Code(s): B20 - Human immunodeficiency virus [HIV] disease (12) DVT prophylaxis Code(s): Z29.9 - ENCOUNTER FOR PROPHYLACTIC MEASURES, UNSPECIFIED (13) Prophylactic measure Code(s): Z29.9 - ENCOUNTER FOR PROPHYLACTIC MEASURES, UNSPECIFIED This patient is new to me today: No Emergency Visit: Yes ED Registration Date: 12/21/19 Care time: The patient presented to the Emergency Department on the above date and was hospitalized for further evaluation of their emergent condition. Critical Care patient: No - Discharge Referral Referred to [facility] No
== END 2019-12-27 12:31 | disposition left against medical advice (07) | DRG 142 ==
LOC: JER 05:27 → JERBED 08:25 → J7W 17:45 → J8W 12-22 10:30 → J6S 12-23 17:57
PROVIDERS: ADMIT Internal Medicine; ATTEND Nurse Practitioner Family
DX: J84.9 Interstitial pulmonary disease, unspecified (principal); B20 Human immunodeficiency virus [HIV] disease; E11.9 Type 2 diabetes mellitus without complications; D72.829 Elevated white blood cell count, unspecified; E43 Unspecified severe protein-calorie malnutrition; Z68.1 Body mass index [BMI] 19.9 or less, adult; K52.9 Noninfective gastroenteritis and colitis, unspecified; F64.0 Transsexualism; R04.2 Hemoptysis; F19.20 Other psychoactive substance dependence, uncomplicated; R63.4 Abnormal weight loss; R07.89 Other chest pain; R91.8 Other nonspecific abnormal finding of lung field; J43.9 Emphysema, unspecified
CPT/HCPCS: 36415; 71260-TC; 74177-TC; 80048; 80053; 80307; 81003; 82103; 82550; 82553; 82607; 83605; 83615; 83735; 84479; 84484; 85025; 85027; 85610; 85730; 86359; 86360; 86480; 86850; 86900; 86901; 87015; 87040; 87045; 87046; 87070; 87081; 87086; 87116; 87177; 87205; 87206; 87207; 87209; 87328; 87329; 87449; 87899; 93005; 93010; 97116-GP; 97162-GP; 99285-25; J0131; Q9967; U0003